=== PATIENT | female | born 1970 | race Caucasian/White ===

== ENCOUNTER 2023-01-04 08:29 | Inpatient (IN) ==
--- NOTE | 2023-01-04 08:35 | Emergency Department Note ---
ED Provider Note History of Present Illness Chief Complaint: Illness Stated Complaint: FEVERS, WEAKNESS, DEHYDRATED Time Seen by Provider: 01/04/23 08:34 This is a 52-year-old female with a history of bladder cancer currently receiving chemotherapy, due for bladder surgery in several months, who was referred to the emergency department by her hematology oncology provider. Patient states that she feels overall unwell. She endorses headaches located over her forehead over the past week or so, she had nausea and dry heaves yesterday and today. Endorses a fever of 103 yesterday, intermittent chills and sweats. She did take Tylenol yesterday for her fever which allowed it to this. Patient endorses an intermittent productive cough that has not really gotten better or worse recently. She had an oncology appointment today and her blood pressure was noted to be slightly low in the 90s systolic and given her fever was sent to the emergency department for a work-up. Last chemo treatment was nearly 2 weeks ago. She is on day 5 of Augmentin for possible sinus infection which was prescribed by Dr. Pickering (oncologist). Patient also states that influenza and COVID have both gone through her household recently. She is having a difficult time staying well-hydrated due to generally not feeling well and nausea. She denies any new shortness of breath, chest pain, abdominal pain, dysuria, or hematuria. No confusion Home Medications Medication Instructions Recorded Confirmed Type clonazepam 0.5 mg tablet 0.5 mg PO BID #180 tabs 07/18/19 01/04/23 History escitalopram oxalate 20 mg tablet 20 mg PO QAM 07/18/19 01/04/23 History methylphenidate HCl 54 mg 54 mg PO QAM PRN ADHD 07/18/19 01/04/23 History tablet,extended release 24 hr zolpidem 12.5 mg tablet,extended 12.5 mg PO HS 07/18/19 01/04/23 History release,multiphase pantoprazole 40 mg tablet,delayed 40 mg PO UD PRN gerd 10/12/22 01/04/23 History release lamotrigine 200 mg tablet 200 mg PO BID 11/13/22 01/04/23 History Allergies Allergy/AdvReac Type Severity Reaction Status Date / Time codeine Allergy Unknown Hallucinati Verified 11/16/22 08:50 ng Past Med/Surg History Medical History ADD (attention deficit disorder) Asthma "Allergy induced asthma" Bipolar disorder Bladder cancer Dx'ed 10/2022 GERD (gastroesophageal reflux disease) History of COVID-19 06/2021, test at [facility], not hosp; cough, fatigue>resolved. 06/2022, no testing-father tested positive, same symptoms>resolved in 3 days. Surgical History H/O transurethral resection of bladder tumor (TURBT) History of esophagogastroduodenoscopy (EGD) Hx of colonoscopy Hx of tonsillectomy Port-A-Cath in place (11/16/22) Left chest Access port placement. Use of fluoroscopy Dr. Sol Family History Mother Myocardial infarction Breast cancer Coronary heart disease Diabetes Heart disease Grandfather (Maternal) Myocardial infarction Coronary heart disease Stroke Diabetes Heart disease Grandmother (Maternal) Myocardial infarction Coronary heart disease Grandmother (Paternal) Cancer Family/Other Colonic polyp Denies family history of Ovarian cancer Prostate cancer Colorectal cancer Social History Smoking Status: Never smoker Second Hand Exposure: No; Hx Alcohol Use: Yes Hx Substance Use: No Preferred Language: Tam[place] Communication Ability: Effective Visual Impairment: No Limitations Hearing Ability: Normal [employer] Structure [employer] Required: No Beliefs That Will Affect Care: None marital status: Current Living Situation: Spouse current occupational status: employed current occupation: teacher How many Children do You have: 2 Feels Safe at Home: Yes Childhood Exposure to Second-Hand Smoke: No during the past year weight has: remained stable Assistive Devices: None Physical Exam Vital Signs Vital Signs - 24 hr 01/04/23 08:32 01/04/23 09:33 01/04/23 09:29 Temperature 97.2 F L Temperature Source Temporal Artery Scan Pulse Rate 86 73 Pulse Rate from SpO2 Sensor Respiratory Rate 18 16 Respiratory Effort / Characteristics Non-Labored Non-Labored Spontaneous Respiratory Depth Normal Normal Respiratory Pattern Regular Regular Blood Pressure 104/73 Blood Pressure [Left Arm] 102/49 L Blood Pressure Mean 83 Blood Pressure Mean [Left Arm] 66 Blood Pressure Position Sitting Blood Pressure Position [Left Arm] Lying Pulse Oximetry 96 95 Oxygen Delivery Method Room Air Room Air Sepsis Recent Fever Within 48 Hours No Sepsis New/Unexplained Change in Mental Status No Sepsis Action Taken by Nursing No Action Required 01/04/23 09:30 01/04/23 09:36 01/04/23 09:36 Temperature Temperature Source Pulse Rate 79 72 Pulse Rate from SpO2 Sensor 72 Respiratory Rate 16 17 Respiratory Effort / Characteristics Respiratory Depth Respiratory Pattern Blood Pressure 102/49 L Blood Pressure [Left Arm] Blood Pressure Mean 66 Blood Pressure Mean [Left Arm] Blood Pressure Position Blood Pressure Position [Left Arm] Pulse Oximetry 95 Oxygen Delivery Method Room Air Sepsis Recent Fever Within 48 Hours Sepsis New/Unexplained Change in Mental Status Sepsis Action Taken by Nursing 01/04/23 10:00 01/04/23 10:00 01/04/23 10:54 Temperature Temperature Source Pulse Rate 73 Pulse Rate from SpO2 Sensor 74 80 Respiratory Rate 13 Respiratory Effort / Characteristics Respiratory Depth Respiratory Pattern Blood Pressure 114/54 L Blood Pressure [Left Arm] Blood Pressure Mean 74 Blood Pressure Mean [Left Arm] Blood Pressure Position Blood Pressure Position [Left Arm] Pulse Oximetry 92 94 Oxygen Delivery Method Room Air Room Air Sepsis Recent Fever Within 48 Hours Sepsis New/Unexplained Change in Mental Status Sepsis Action Taken by Nursing 01/04/23 11:00 Temperature Temperature Source Pulse Rate 72 Pulse Rate from SpO2 Sensor 74 Respiratory Rate 15 Respiratory Effort / Characteristics Respiratory Depth Respiratory Pattern Blood Pressure Blood Pressure [Left Arm] Blood Pressure Mean Blood Pressure Mean [Left Arm] Blood Pressure Position Blood Pressure Position [Left Arm] Pulse Oximetry 92 Oxygen Delivery Method Room Air Sepsis Recent Fever Within 48 Hours Sepsis New/Unexplained Change in Mental Status Sepsis Action Taken by Nursing CONSTITUTIONAL: Well developed, well nourished, mildly ill-appearing, nontoxic HEAD: Normocephalic, atraumatic. EYES: PERRL, conjunctivae normal, extraocular muscles intact. ENMT: External ears normal. Nose with normal external appearance, mild congestion is noted. Oral mucous membranes slightly dry, otherwise normal oropharynx. NECK: Full active range of motion. No rigidity LYMPHATIC: No cervical adenopathy RESPIRATORY: Breathing unlabored and symmetric. Lungs clear to auscultation bilaterally. No wheeze, rales, or rhonchi. CARDIOVASCULAR: Regular rate and rhythm. No murmurs, rubs, or gallops. No swelling or tenderness in bilateral lower extremities ABDOMEN: Normal bowel sounds. Soft, nontender, no peritonitis. No masses. No CVA tenderness bilaterally. MUSCULOSKELETAL: Moves all extremities at all joints without pain or difficulty. No cyanosis or edema. Back with full range of motion. SKIN: [place], warm, dry. NEUROLOGIC: Awake, alert, oriented. Gaze is conjugate. Face symmetric, speech normal. Moves head and all four extremities spontaneously. Sensation and strength grossly intact. PSYCHIATRIC: Appropriate. Normal affect Course Consultations Consultation #1: Spoke with Dr. Pickering (oncology) who referred the patient to the emergency department. She is requesting a septic work-up with blood work, blood cultures, chest x-ray, urinalysis. We discussed her being on Augmentin over the past 5 days which she does not think should be extended as the patient developed a fever of 103 yesterday. Administered Medications Acetaminophen (Acetaminophen 325 Mg Tab) 650 mg PO Q4H PRN PRN Reason: Pain or Fever Stop: 02/03/23 14:39 Last Admin: 01/04/23 15:03 Dose: 650 mg Documented By: ROMEL Miscellaneous (Concerta~Order Awaiting Action) 1 each N/A QS FREDIS Stop: 02/03/23 15:59 Last Admin: 01/04/23 17:02 Dose: Not Given Documented By: ROMEL Discontinued Medications Acetaminophen (Acetaminophen 325 Mg Tab) 650 mg PO NOW STA Stop: 01/04/23 09:57 Last Admin: 01/04/23 10:01 Dose: 650 mg Documented By: JORDANA Famotidine (Famotidine 20mg/5ml Iv Push) 20 mg IV ONE STA Stop: 01/04/23 12:08 Last Admin: 01/04/23 12:29 Dose: 20 mg Documented By: JORDANA Sodium Chloride (Nss 1000ml) 1,000 mls @ 999 mls/hr IV .Q1H1M ONE Stop: 01/04/23 09:52 Last Infusion: 01/04/23 10:36 Dose: 0 mls/hr Documented By: Admin: 01/04/23 09:36 Dose: 999 mls/hr Documented By: JORDANA Sodium Chloride (Nss 1000ml) 1,000 mls @ 999 mls/hr IV .Q1H1M ONE Stop: 01/04/23 11:04 Last Infusion: 01/04/23 11:45 Dose: 0 mls/hr Documented By: Admin: 01/04/23 10:44 Dose: 999 mls/hr Documented By: JORDANA Cefepime HCl (Maxipime) 2,000 mg in 20 mls @ 5 mls/min IV NOW STA; Protocol Stop: 01/04/23 10:10 Last Admin: 01/04/23 10:45 Dose: 5 mls/min Documented By: JORDANA Vancomycin HCl 2,250 mg/ (Sodium Chloride) 545 mls @ 200 mls/hr IV NOW ONE Stop: 01/04/23 12:50 Last Admin: 01/04/23 10:50 Dose: 200 mls/hr Documented By: JORDANA Piperacillin Sod/Tazobactam (Sod 4.5 gm/ Dextrose) 120 mls @ 240 mls/hr IV NOW ONE; Protocol Stop: 01/04/23 15:29 Last Infusion: 01/04/23 17:14 Dose: 0 mls/hr Documented By: Admin: 01/04/23 15:05 Dose: 240 mls/hr Documented By: ROMEL Ondansetron HCl (Ondansetron Inj 2 Mg/Ml 2 Ml Vial) 4 mg IV NOW STA Stop: 01/04/23 09:10 Last Admin: 01/04/23 09:36 Dose: 4 mg Documented By: JORDANA Medical Decision Making Differential Diagnosis Sepsis, viral upper respiratory infection, sinusitis, bacteremia, pneumonia, UTI, neutropenic fever, meningitis, among other pathology Laboratory Data 01/04/23 09:39 01/04/23 09:39 Lab Results 01/04/23 01/04/23 01/04/23 Range/Units 09:39 09:39 09:39 WBC 2.03 L (4.8-10.8) K/ul RBC 3.52 L (4.20-5.40) M/uL Hgb 10.0 L (12.0-16.0) g/dl Hct 29.6 L (37.0-47.0) % MCV 84.1 (80.0-100.0) fL MCH 28.4 (25.0-34.0) pg MCHC 33.8 (32.0-36.0) g/dL RDW Std Deviation 40.9 (36.4-46.3) fL RDW Coeff of Jane 14.8 H (11.5-14.5) % Plt Count 114 L (130-400) K/uL MPV 9.6 (9.4-12.4) fL Immature Gran % (Auto) 3.9 % Neut % (Auto) 51.3 % Lymph % (Auto) 24.1 % Morrison % (Auto) 19.2 % Eos % (Auto) 1.0 % Baso % (Auto) 0.5 % Neut # (Auto) 1.04 L (1.40-6.50) K/uL Lymph # (Auto) 0.49 L (1.2-3.4) K/uL Morrison # (Auto) 0.39 (0.11-0.59) K/uL Eos # (Auto) 0.02 (0-0.50) K/uL Baso # (Auto) 0.01 (0-0.2) K/uL Immature Gran # (Auto) 0.08 (0.01-0.20) K/uL Sodium 136 (136-145) mmol/L Potassium 4.0 (3.5-5.1) mmol/L Chloride 99 (98-107) mmol/L Carbon Dioxide 29 (21-32) mmol/L Anion Gap 8 (3-11) BUN 14 (6-23) mg/dl Creatinine 0.80 (0.6-1.2) mg/dl Est Cr Clr Drug Dosing 108.7 ml/min Est GFR ( Amer) 98.9 ml/min Est GFR (Non-Af Amer) 85.4 ml/min BUN/Creatinine Ratio 17.5 (10-20) Glucose 120 H (70-99(Fasting)) mg/dl Lactate 3.3 H* (0.4-2.0) mmol/L Calcium 9.3 (8.5-10.1) mg/dl Total Bilirubin 0.3 (0.2-1.0) mg/dl AST 14 (13-39) U/L ALT 13 (7-52) U/L Alkaline Phosphatase 73 (34-104) U/L Total Creatine Kinase 29 (26-192) U/L Total Protein 6.4 (6.0-8.3) gm/dl Albumin 4.0 (3.4-5.0) gm/dl Globulin 2.4 L (2.5-4.0) gm/dl Albumin/Globulin Ratio 1.7 (0.9-2) Procalcitonin (0-0.5) ng/ml Adenovirus (PCR) (NotDetected) B. pertussis DNA (PCR) (NotDetected) B.parapertussis DNA PCR (NotDetected) C. pneumoniae DNA (PCR) (NotDetected) Coronavirus OC43 (PCR) (NotDetected) Coronavirus HKU1 (PCR) (NotDetected) Coronavirus 229E (PCR) (NotDetected) SARS-CoV-2 (PCR) (NotDetected) Coronavirus NL63 (PCR) (NotDetected) Human Metapneumovir PCR (NotDetected) Influenza Type A (PCR) (NotDetected) Influenza Type B (PCR) (NotDetected) M. pneumoniae (PCR) (NotDetected) Parainfluenza 1 (PCR) (NotDetected) Parainfluenza 2 (PCR) (NotDetected) Parainfluenza 3 (PCR) (NotDetected) Parainfluenza 4 (PCR) (NotDetected) RSV (PCR) (NotDetected) Entero/Rhino (PCR) (NotDetected) 01/04/23 01/04/23 01/04/23 Range/Units 09:39 09:39 09:43 WBC (4.8-10.8) K/ul RBC (4.20-5.40) M/uL Hgb (12.0-16.0) g/dl Hct (37.0-47.0) % MCV (80.0-100.0) fL MCH (25.0-34.0) pg MCHC (32.0-36.0) g/dL RDW Std Deviation (36.4-46.3) fL RDW Coeff of Jane (11.5-14.5) % Plt Count (130-400) K/uL MPV (9.4-12.4) fL Immature Gran % (Auto) % Neut % (Auto) % Lymph % (Auto) % Morrison % (Auto) % Eos % (Auto) % Baso % (Auto) % Neut # (Auto) (1.40-6.50) K/uL Lymph # (Auto) (1.2-3.4) K/uL Morrison # (Auto) (0.11-0.59) K/uL Eos # (Auto) (0-0.50) K/uL Baso # (Auto) (0-0.2) K/uL Immature Gran # (Auto) (0.01-0.20) K/uL Sodium (136-145) mmol/L Potassium (3.5-5.1) mmol/L Chloride (98-107) mmol/L Carbon Dioxide (21-32) mmol/L Anion Gap (3-11) BUN (6-23) mg/dl Creatinine (0.6-1.2) mg/dl Est Cr Clr Drug Dosing ml/min Est GFR ( Amer) ml/min Est GFR (Non-Af Amer) ml/min BUN/Creatinine Ratio (10-20) Glucose (70-99(Fasting)) mg/dl Lactate (0.4-2.0) mmol/L Calcium (8.5-10.1) mg/dl Total Bilirubin (0.2-1.0) mg/dl AST (13-39) U/L ALT (7-52) U/L Alkaline Phosphatase (34-104) U/L Total Creatine Kinase Cancelled (26-192) U/L Total Protein (6.0-8.3) gm/dl Albumin (3.4-5.0) gm/dl Globulin (2.5-4.0) gm/dl Albumin/Globulin Ratio (0.9-2) Procalcitonin 0.19 (0-0.5) ng/ml Adenovirus (PCR) Not Detected (NotDetected) B. pertussis DNA (PCR) Not Detected (NotDetected) B.parapertussis DNA PCR Not Detected (NotDetected) C. pneumoniae DNA (PCR) Not Detected (NotDetected) Coronavirus OC43 (PCR) Not Detected (NotDetected) Coronavirus HKU1 (PCR) Not Detected (NotDetected) Coronavirus 229E (PCR) Not Detected (NotDetected) SARS-CoV-2 (PCR) Not Detected (NotDetected) Coronavirus NL63 (PCR) Not Detected (NotDetected) Human Metapneumovir PCR Not Detected (NotDetected) Influenza Type A (PCR) Not Detected (NotDetected) Influenza Type B (PCR) Not Detected (NotDetected) M. pneumoniae (PCR) Not Detected (NotDetected) Parainfluenza 1 (PCR) Not Detected (NotDetected) Parainfluenza 2 (PCR) Not Detected (NotDetected) Parainfluenza 3 (PCR) Not Detected (NotDetected) Parainfluenza 4 (PCR) Not Detected (NotDetected) RSV (PCR) Not Detected (NotDetected) Entero/Rhino (PCR) Not Detected (NotDetected) Imaging Data Attestation: I personally reviewed and interpreted this imaging study as follows: (I agree with the radiologist's interpretation) Radiologist's Impression: Chest X-Ray 01/04/23 09:04 XR chest 2V PA/lateral CLINICAL HISTORY: cough, fever, immunocompromised TECHNIQUE: 2 views of the chest were obtained. Comparison: Comparison is made to chest radiograph 11/16/2022 FINDINGS: A port catheter is seen. The cardiomediastinal silhouette is normal. The lungs are clear. No evidence of pleural effusion or pneumothorax. Degenerative changes are seen in the spine. IMPRESSION: No acute chest disease. ACT 112: Negative or not required by law. Electronically signed by: Jacques Palacio M.D. 01/04/2023 10:40 AM MDM Narrative 52-year-old female bladder cancer patient on chemotherapy presents with a fever of 103 yesterday, dry heaves and nausea yesterday and today, generally feeling unwell with a productive cough intermittently and persistent frontal headache. On day 5 of Augmentin for questionable sinus infection. She was sent to the emergency department by oncology for slightly low blood pressure and sepsis work-up. Here in the ED she is 104/73, not tachycardic, afebrile. Slightly ill-appearing but nontoxic. Mucous membranes slightly dry. Blood cultures were obtained. Initial 1 L of IV fluids was initiated. Labs showed leukopenia at 2.03 compared to 4.33 from 6 days ago. Her lactate is elevated at 3.3. Given her fever of 103 yesterday, she meets sepsis criteria. An additional 1 L of IV fluids was administered based on ideal body weight to meet sepsis parameters. Case was discussed with ED attending Dr. Gaines and we will administer vancomycin and cefepime. Hemoglobin 10.0, slightly decreased from prior. Upper respiratory panel is negative. Urine no evidence of infection. Her chest x-ray does not show any obvious abnormalities. Patient rested comfortably. She will be admitted for ongoing management after discussing the case with the [facility] hospitalist group. Impression Neutropenic fever Discharge Plan Visit Data Chief Complaint: Illness Stated Complaint: FEVERS, WEAKNESS, DEHYDRATED ED Provider: Gustabo Gaines ED Midlevel Provider: Rohith Pacheco Discharge Problem: Neutropenic fever Patient Disposition: Admitted As Inpatient Discharge Instructions Interventions: ED Discharge Assessment Last Done: 01/04/23 13:41
[2023-01-04] MEDS ORDERED: SODIUM CHLORIDE 0.9% 1000ML 1,000 ML IV ONE ×2 (08:52→10:04)
[2023-01-04] MEDS ORDERED: ONDANSETRON INJ 2 MG/ML 2 ML VIAL IV STA (09:09)
[2023-01-04] MEDS ORDERED: ACETAMINOPHEN 325 MG TAB PO STA (09:56)
[2023-01-04 10:05] LABS: Basophils # (auto) 0.01 K/uL (0-0.2); Basophils % (auto) 0.5 %; Eosinophils # (auto) 0.02 K/uL (0-0.50); Hematocrit (blood only) 29.6 % (37.0-47.0); Immature Granulocytes # (auto) 0.08 K/uL (0.01-0.20); Immature Granulocytes % (auto) 3.9 %; Lymphocytes # (auto) 0.49 K/uL (1.2-3.4); Lymphocytes % (auto) 24.1 %; Mean Corpuscular Hemoglobin 28.4 pg (25.0-34.0); Mean Corpuscular Hgb Conc 33.8 g/dL (32.0-36.0); Mean Corpuscular Volume 84.1 fL (80.0-100.0); Mean Platelet Volume 9.6 fL (9.4-12.4); Monocytes # (auto) 0.39 K/uL (0.11-0.59); Monocytes % (auto) 19.2 %; Neutrophils # (auto) 1.04 K/uL (1.40-6.50); Neutrophils % (auto) 51.3 %; Platelet Count 114 K/uL (130-400); RDW Coefficient of Variation 14.8 % (11.5-14.5); RDW Standard Deviation 40.9 fL (36.4-46.3); Red Blood Count 3.52 M/uL (4.20-5.40); White Blood Count 2.03 K/ul (4.8-10.8)
[2023-01-04 10:07] LABS: Bilirubin,Total 0.3 mg/dl (0.2-1.0); Calcium 9.3 mg/dl (8.5-10.1)
[2023-01-04] MEDS ORDERED: VANCOMYCIN CONSULT ACTIVE PRN (10:07)
[2023-01-04] MEDS ORDERED: VANCOMYCIN HCL 2,250 MG in SODIUM CHLORIDE 0.9% 500 ML IV ONE (10:07)
[2023-01-04] MEDS ORDERED: CEFEPIME 2,000 MG/20 ML VIAL IV STA (10:07)
[2023-01-04 10:13] LABS: Albumin Globulin Ratio 1.7 (0.9-2); BUN Creatinine Ratio 17.5 (10-20); Creatinine Clr Calc Pharmacy 108.7 ml/min; Est GFR (African American) 98.9 ml/min; Est GFR (Non-African American) 85.4 ml/min; Globulin 2.4 gm/dl (2.5-4.0); Total Protein 6.4 gm/dl (6.0-8.3)
--- NOTE | 2023-01-04 10:42 | XRay Report ---
XR chest 2V PA/lateral CLINICAL HISTORY: cough, fever, immunocompromised TECHNIQUE: 2 views of the chest were obtained. Comparison: Comparison is made to chest radiograph 11/16/2022 FINDINGS: A port catheter is seen. The cardiomediastinal silhouette is normal. The lungs are clear. No evidence of pleural effusion or pneumothorax. Degenerative changes are seen in the spine. IMPRESSION: No acute chest disease. ACT 112: Negative or not required by law. Electronically signed by: Jacques Palacio M.D. 01/04/2023 10:40 AM
[2023-01-04 10:59] LABS: Adenovirus PCR Not Detected (NotDetected); Bordetella parapertussis PCR Not Detected (NotDetected); Bordetella pertussis PCR Not Detected (NotDetected); Chlamydia pneumoniae PCR Not Detected (NotDetected); Coronavirus 229E PCR Not Detected (NotDetected); Coronavirus CoV-2 (COVID19)PCR Not Detected (NotDetected); Coronavirus HKU1 PCR Not Detected (NotDetected); Coronavirus NL63 PCR Not Detected (NotDetected); Coronavirus OC43PCR Not Detected (NotDetected); Human Metapneumovirus PCR Not Detected (NotDetected); Influenza A PCR Not Detected (NotDetected); Influenza B PCR Not Detected (NotDetected); Mycoplasma pneumoniae PCR Not Detected (NotDetected); Parainfluenza Virus 1 PCR Not Detected (NotDetected); Parainfluenza Virus 2 PCR Not Detected (NotDetected); Parainfluenza Virus 3 PCR Not Detected (NotDetected); Parainfluenza Virus 4 PCR Not Detected (NotDetected); Respiratory Syncytial VirusPCR Not Detected (NotDetected); Rhinovirus/Enterovirus PCR Not Detected (NotDetected)
--- NOTE | 2023-01-04 11:16 | History & Physical Report ---
Date of Service January 04, 2023 Assessment & Plan (1) Neutropenic fever: Plan: No definitive source on admission but Mediport present Neutropenic isolation precautions Biofire and CXR negative UA pending but no urinary symptoms Mild epigastric pain but will defer further imaging on admission as low suspicion as source of infection - treat as gastritis as below Blood cultures Empiric antibiotics with Vancomycin and Zosyn (2) GERD (gastroesophageal reflux disease): Plan: Gastritis suspected on exam Start IV famotidine 20mg, switch oral pantoprazole to IV (3) Bipolar disorder: Plan: Continue lamotrigine, Lexapro, Clonazepam and Zolpidem (4) Urothelial cancer: Plan VTE Prophylaxis - Lovenox 40mg SQ BID Diet - regular Disposition - admit to PCU Admission and Anticipated Discharge Date Admission Date: Jan 04, 2023 History of Present Illness Chief Complaint: Generalized weakness Primary Care Provider: Dewayne Bryant MD Ashley Mcgowan is a 52-year-old female who presents to the with generalized weakness, nausea. She is currently receiving chemotherapy for bladder cancer with last infusion 2 weeks ago. Generally not feeling well for the last 10 days after chemotherapy 2 weeks ago. She usually gets sick a few days after chemotherapy but then improves but this time she has progressively been getting worse. Due to hypotension in her oncologist office she was advised to come to the ER (). Yesterday she had a fever of 103 degrees Fahrenheit which improved with acetaminophen, ice and a bath. Family in her house had flu-like symptoms last week and her sinuses felt full therefore she was prescribed a course of antibiotics with Augmentin for sinusitis by her oncologist this last week. She was on this for 7 days and is now finished. Today is the best the sinus pain have felt. One episode of loose stool yesterday but no ongoing diarrhea. She had dry heaves yesterday and this morning. She has chronic chest tightness (feeling of claustrophobia) since starting chemotherapy which has not recently changed. She denies any melena or bright red blood in stool. Initially she denies any abdominal pain but on discussing her reflux and pantoprazole use she reports new onset epigastric pain for the last 14 days and taking pantoprazole regularly for the last 7 days which was midly helping but still having some epigastric discomfort. Allergies Allergy/AdvReac Type Severity Reaction Status Date / Time codeine Allergy Unknown Hallucinati Verified 11/16/22 08:50 ng Home Medications Medication Instructions Recorded Confirmed Type clonazepam 0.5 mg tablet 0.5 mg PO BID #180 tabs 07/18/19 01/04/23 History escitalopram oxalate 20 mg tablet 20 mg PO QAM 07/18/19 01/04/23 History methylphenidate HCl 54 mg 54 mg PO QAM PRN ADHD 07/18/19 01/04/23 History tablet,extended release 24 hr zolpidem 12.5 mg tablet,extended 12.5 mg PO HS 07/18/19 01/04/23 History release,multiphase pantoprazole 40 mg tablet,delayed 40 mg PO UD PRN gerd 10/12/22 01/04/23 History release lamotrigine 200 mg tablet 200 mg PO BID 11/13/22 01/04/23 History Past Med/Surg History Medical History ADD (attention deficit disorder) Asthma "Allergy induced asthma" Bipolar disorder Bladder cancer Dx'ed 10/2022 GERD (gastroesophageal reflux disease) History of COVID-19 06/2021, test at [place], not hosp; cough, fatigue>resolved. 06/2022, no testing-father tested positive, same symptoms>resolved in 3 days. Surgical History H/O transurethral resection of bladder tumor (TURBT) History of esophagogastroduodenoscopy (EGD) Hx of colonoscopy Hx of tonsillectomy Port-A-Cath in place (11/16/22) Left chest Access port placement. Use of fluoroscopy Dr. Sol Family History Mother Myocardial infarction Breast cancer Coronary heart disease Diabetes Heart disease Grandfather (Maternal) Myocardial infarction Coronary heart disease Stroke Diabetes Heart disease Grandmother (Maternal) Myocardial infarction Coronary heart disease Grandmother (Paternal) Cancer Family/Other Colonic polyp Denies family history of Ovarian cancer Prostate cancer Colorectal cancer Social History Smoking Status: Never smoker Second Hand Exposure: No; Hx Alcohol Use: Yes Hx Substance Use: No Preferred Language: Greek Communication Ability: Effective Visual Impairment: No Limitations Hearing Ability: Normal Material Handling Technician Required: No Beliefs That Will Affect Care: None marital status: Current Living Situation: Spouse current occupational status: employed current occupation: teacher How many Children do You have: 2 Feels Safe at Home: Yes Childhood Exposure to Second-Hand Smoke: No during the past year weight has: remained stable Assistive Devices: None Review of Systems Review of Systems: All systems reviewed & are unremarkable except as noted in HPI & below Physical Exam Constitutional: WD/WN, vitals as above Eyes: PERRL, conjunctivae normal, anicteric sclerae ENMT: external ear and nose normal, oropharynx normal Mouth: oral mucous membranes not dry Respiratory: normal respiratory effort, lungs clear to auscultation Gastrointestinal (Abdomen): normal bowel sounds, soft, nontender, no hepatosplenomegaly Musculoskeletal: no cyanosis or clubbing, extremities motor strength 5/5 Skin: no rashes, warm and dry No erythema or swelling around mediport Neurologic: moves all extremities and awake; no focal motor deficits and not confused Psychiatric: A+Ox3, euthymic affect Genitourinary: no CVA tenderness Results & Data Results & Data ([facility]) Vital Signs (Past 12 Hours) Vital Signs Temp Pulse Resp BP BP Pulse Ox O2 Del Method 01/04/23 09:36 72 17 95 Room Air 01/04/23 09:36 102/49 L 01/04/23 09:30 79 16 01/04/23 09:29 16 102/49 L 95 Room Air 01/04/23 09:33 73 01/04/23 08:32 36.2 C L 86 18 104/73 96 Room Air Laboratory Results Abnormal lab results 01/04/23 01/04/23 01/04/23 Range/Units 09:39 09:39 09:39 WBC 2.03 L (4.8-10.8) K/ul RBC 3.52 L (4.20-5.40) M/uL Hgb 10.0 L (12.0-16.0) g/dl Hct 29.6 L (37.0-47.0) % RDW Coeff of Jane 14.8 H (11.5-14.5) % Plt Count 114 L (130-400) K/uL Neut # (Auto) 1.04 L (1.40-6.50) K/uL Lymph # (Auto) 0.49 L (1.2-3.4) K/uL Glucose 120 H (70-99(Fasting)) mg/dl Lactate 3.3 H* (0.4-2.0) mmol/L Globulin 2.4 L (2.5-4.0) gm/dl Diagnostic Findings XR chest 2V PA/lateral CLINICAL HISTORY: cough, fever, immunocompromised TECHNIQUE: 2 views of the chest were obtained. Comparison: Comparison is made to chest radiograph 11/16/2022 FINDINGS: A port catheter is seen. The cardiomediastinal silhouette is normal. The lungs are clear. No evidence of pleural effusion or pneumothorax. Degenerative changes are seen in the spine. IMPRESSION: No acute chest disease. Medications Administered ER medications given: Normal saline 1 L bolus x2 Cefepime 2 g IV Vancomycin 2250 mg IV Acetaminophen 650 mg p.o. ECG Rate (beats per minute): 64 Rhythm: normal sinus Findings: no acute ischemic change Comparison ECG Date: from (07 Oct 2022) Change: the following changes noted (T wave amplitude decreased in inferior leads) Code Status & VTE Plan Code Status Full VTE Prophylaxis Plan VTE Prophylaxis will be ordered: Yes PG Care Time/CCT Total # of Minutes Spent Total Time Spent with Patient: Total time spent is greater than 50% in coordination of care (as documented) at patient's floor/unit and/or counseling patient: Coding Level of Care Code 96784 INT INP/OBS CARE 3/75MIN Diagnoses Neutropenic fever D70.9; R50.81 GERD (gastroesophageal reflux disease) K21.9 Esophagitis presence: without esophagitis Bipolar disorder F31.9 Current bipolar episode type: depressed Current episode severity: unspecified Urothelial cancer C68.9 (2) GERD (gastroesophageal reflux disease) Esophagitis presence: without esophagitis Qualified Code(s): K21.9 - Gastro- esophageal reflux disease without esophagitis (3) Bipolar disorder Current bipolar episode type: depressed Current episode severity: unspecified
[2023-01-04] MEDS ORDERED: FAMOTIDINE 20 MG in SYRINGE 3 ML IV STA (12:03)
[2023-01-04] MEDS ORDERED: FAMOTIDINE 20MG/5ML IV PUSH IV STA (12:07)
[2023-01-04 12:13] LABS: Appearance Urine Clear (Clear); Bacteria Urine Automated Negative (Negative); Bilirubin Urine Negative (Negative); Blood Urine Negative (Negative); Cast Urine Automated 0 /lpf (0-5); Color Urine Yellow; Epithelial Cell Urine Auto 20-30 /lpf (0-5); Glucose Urine UA Negative (Negative); Ketones Urine Negative (Negative); Leukocyte Esterase Urine Trace (Negative); Nitrite Urine Negative (Negative); Protein Urine Negative (Negative); RBC Urine Automated 0-4 /hpf (0-4); Specific Gravity Urine 1.008 (1.000-1.030); Urobilinogen Urine Negative (Negative); pH Urine 6.5 (4.5-7.5)
--- NOTE | 2023-01-04 12:52 | Electrocardiogram Report ---
Test Reason : Blood Pressure : / mmHG Vent. Rate : 064 BPM Atrial Rate : 064 BPM P-R Int : 166 ms QRS Dur : 092 ms QT Int : 412 ms P-R-T Axes : 042 026 039 degrees QTc Int : 425 ms Normal sinus rhythm Normal ECG When compared with ECG of 07-OCT-2022 11:30, T wave amplitude has decreased in Inferior leads Confirmed by Dewayne Rojo ([id number]) on 01/04/2023 12:52:30 PM Referred By: REFERRED SELF Confirmed By:Dewayne Rojo
[2023-01-04] MEDS ORDERED: PIPERACILLIN/TAZOBACTAM 4.5 GM (over 30 mins) IV ONE (15:00)
--- NOTE | 2023-01-04 15:02 | Pharmacy Report ---
Pharmacy PK ABX Note - Date of Service January 04, 2023 - Assessment and Plan Assessment 52 year old F receiving vancomycin and zosyn empirically in the setting of fever and neutropenia. Currently receiving chemotherapy for bladder cancer. Blood cultures pending. Renal function stable. Day #1 of antimicrobial therapy. Plan Vancomycin * Loading dose: 2250 mg IV x 1 * Maintenance dose: 1250 mg IV every 12 hours * Regimen is predicted to achieve target AUC/ANDREW of 400-600 mg/L.hr * Will obtain a level around steady state, or sooner if clinically indicated. Pharmacy will continue to follow and will adjust dose/frequency as necessary. Thank you. Pharmacy has transitioned to AUC monitoring for vancomycin. AUC/ANDREW is the preferred PK/PD target and is associated with decreased risk of nephrotoxicity compared to traditional trough targets.
[2023-01-04] MEDS: ACETAMINOPHEN 325 MG TAB PO PRN ×2 (15:03→20:27)
[2023-01-04] MEDS: CONCERTA~ORDER AWAITING ACTION SCH ×2 (17:02→23:25)
[2023-01-04] MEDS: VANCOMYCIN HCL 1,250 MG in SODIUM CHLORIDE 0.9% 250 ML IV SCH (18:38)
[2023-01-04] MEDS: FAMOTIDINE 20 MG in SYRINGE 3 ML IV SCH (20:01)
[2023-01-04] MEDS: lamoTRIgine 100 MG TAB PO SCH (20:03)
[2023-01-04] MEDS: PANTOprazole 40 MG in SYRINGE 0 ML IV SCH (20:05)
[2023-01-04] MEDS: ZOLPIDEM TARTRATE 10 MG TAB PO SCH (20:10)
[2023-01-04] MEDS: PIPERACILLIN/TAZOBACTAM 4.5 GM in DEXTROSE 5% 100 ML IV SCH (20:11)
[2023-01-04] MEDS: clonazePAM 0.5 MG TAB PO SCH (20:11)
[2023-01-05] MEDS: ACETAMINOPHEN 325 MG TAB PO PRN ×4 (03:09→20:56)
[2023-01-05] MEDS: PIPERACILLIN/TAZOBACTAM 4.5 GM in DEXTROSE 5% 100 ML IV SCH ×3 (03:15→19:46)
[2023-01-05] MEDS: ONDANSETRON INJ 2 MG/ML 2 ML VIAL IV PRN ×3 (03:28→15:01)
[2023-01-05 06:01] LABS: Hematocrit (blood only) 27.8 % (37.0-47.0); Hemoglobin 9.4 g/dl (12.0-16.0); Mean Corpuscular Hemoglobin 28.3 pg (25.0-34.0); Mean Corpuscular Hgb Conc 33.8 g/dL (32.0-36.0); Mean Corpuscular Volume 83.7 fL (80.0-100.0); Mean Platelet Volume 9.6 fL (9.4-12.4); Platelet Count 126 K/uL (130-400); RDW Coefficient of Variation 14.9 % (11.5-14.5); RDW Standard Deviation 42.1 fL (36.4-46.3); Red Blood Count 3.32 M/uL (4.20-5.40)
[2023-01-05 06:17] LABS: BUN Creatinine Ratio 12.3 (10-20); Calcium 8.6 mg/dl (8.5-10.1); Creatinine Clr Calc Pharmacy 109.9 ml/min; Est GFR (African American) 97.5 ml/min; Est GFR (Non-African American) 84.1 ml/min; Potassium 3.7 mmol/L (3.5-5.1)
[2023-01-05] MEDS: VANCOMYCIN HCL 1,250 MG in SODIUM CHLORIDE 0.9% 250 ML IV SCH ×2 (06:48→18:07)
[2023-01-05] MEDS: PANTOprazole 40 MG in SYRINGE 0 ML IV SCH ×2 (07:34→20:47)
[2023-01-05] MEDS: FAMOTIDINE 20 MG in SYRINGE 3 ML IV SCH ×2 (07:35→20:46)
[2023-01-05] MEDS: CONCERTA~ORDER AWAITING ACTION SCH ×3 (09:05→22:29)
[2023-01-05] MEDS: ESCITALOPRAM OXALATE 20 MG TAB PO SCH (09:12)
[2023-01-05] MEDS: lamoTRIgine 100 MG TAB PO SCH ×2 (09:12→20:48)
[2023-01-05] MEDS: clonazePAM 0.5 MG TAB PO SCH ×2 (09:12→20:51)
--- NOTE | 2023-01-05 11:48 | Hospitalist Progress Note ---
Date of Service January 05, 2023 Assessment & Plan (1) Neutropenic fever: Plan: 2nd to recent URI/acute sinusitis? BioFire resp panel fully negative. CXR negative. CTA chest obtained today due to c/o dyspnea - fully negative for pneumonia and PE. U/a wnl. Blood cx's thus far negative. Cont Neutropenic isolation precautions. Cont Empiric antibiotics with Vancomycin and Zosyn. If above w/u remains negative would Rx for acute bacterial sinusitis at d/c. Pharmacy records show she had gotten 7 day supply of augmentin, but pt reports only taking 5 days? (2) Antineoplastic chemotherapy induced pancytopenia: Plan: s/p recent chemotherapy for bladder/urothelial cancer. All cell lines low but acceptable. ANC still >1000. Thus neutropenia is mild at this time. Repeat CBC am. (3) Sepsis: Plan: Possible. Follow blood cx's. Cont empiric broad-spectrum IV abx. (4) Dyspnea: Plan: Due to this complaint I ordered CTA chest - this was fully neg for pneumonia/metastatic disease/PEs/other pathology. 2nd to anxiety? (5) Sinusitis, acute: Plan: as above in #1. cont IV abx until blood cx's neg x 48 hours. then either finish course of augmentin OR change to cephalosporin. (6) Diarrhea: Plan: given recent abx usage check a c diff. (7) GERD (gastroesophageal reflux disease): Plan: +/-gastritis add carafate QID cont PPI + H2 lucy EGD previously completed in 05/2018 at [facility] - Dr Efra Victor By report -- gastritis seen. Path c/w mild chronic gastritis. Normal duodenal bx. H pylori negative. At d/c consider increase in PPI to twice daily for a few weeks, then back to once daily after that. Also consider 7-10 day run of carafate. (8) Bipolar disorder: Plan: Continue lamotrigine, Lexapro, Clonazepam and Zolpidem (9) Urothelial cancer: Plan: Under the care of [facility] locally, Dr Pickering at [facility], and [facility] for future bladder surgery (planned for March). Pt is hoping to stop chemo soon and proceed directly to surgery. Defer that decision to Dr Pickering. (10) DVT prophylaxis: Plan: add lovenox 40mg once daily first dose now Plan updated pt's by phone this evening discussed pt's care with Dr Pickering from heme/onc Admission and Anticipated Discharge Date Admission Date: January 04, 2023 Subjective tele stable overnight patient feeling poorly overall, but with that said she states "can I go home?" not sleeping well here - knows she will sleep better at home she & her along with 2 adult children all had URIs in the last 10 days her symptoms have lasted longest (probably the full 10 days) maxillary sinus pain and tooth pain, congestion, mild cough appetite fair at best did take augmentin prescribed by Dr Pickering's office for about 5 days prior to this admission feels run down also c/o feeling short of breath both at rest and with exertion states "it is a claustrophobia feeling" in my chest has had the dyspnea since starting chemo at one point started to cry, stating she couldn't continue chemo and just wants to do her surgery on the bladder down in [place] at [facility] asks if I can speak to Dr Pickering about this Review of Systems Review of Systems: gen - no further fever/chills today; appetite fair cv - no chest pain or orthopnea pulm - mild cough and dyspnea (latter chronic) GI - no vomiting, having mucous-filled stools, no blood ; also with reflux type symptoms and dyspepsia/stomach pain high abdomen - relieved with pepcid Physical Exam Physical Exam: gen - obese, NAD, tearful, lying flat comfortably in bed mouth - no thrush, no mucositis, MMM neck - no JVD heart - RRR, s1 s2, no murmur lungs - left basilar faint dry rales, otherwise CTA b/l abd - soft, mildly tender high epigastric region, BS+, no HSM ext - no edema, pulses 2+ b/l chest - port L upper chest clean, no erythema skin - no rash Results & Data Results & Data ([facility]) Vital Signs (Past 12 Hours) Vital Signs Temp Pulse Pulse Resp BP Pulse Ox O2 Del Method 01/05/23 11:09 36.8 C 76 16 119/82 94 Room Air 01/05/23 07:40 Room Air 01/05/23 05:58 66 01/05/23 07:25 37.4 C 76 18 101/65 97 Room Air 01/05/23 06:02 84 18 126/44 L 92 Room Air 01/05/23 05:11 37.6 C H 01/05/23 03:57 77 19 113/58 L 91 Room Air Laboratory Results Laboratory Results - last 24 hr 01/04/23 01/04/23 01/04/23 09:39 09:39 11:33 WBC RBC Hgb Hct MCV MCH MCHC RDW Std Deviation RDW Coeff of Jane Plt Count MPV Sodium Potassium Chloride Carbon Dioxide Anion Gap BUN Creatinine Est Cr Clr Drug Dosing Est GFR ( Amer) Est GFR (Non-Af Amer) BUN/Creatinine Ratio Glucose POC Glucose Lactate Calcium Total Creatine Kinase 29 Cancelled Urine Color Yellow Urine Appearance Clear Urine pH 6.5 Ur Specific [place] 1.008 Urine Protein Negative Urine Glucose (UA) Negative Urine Ketones Negative Urine Blood Negative Urine Nitrite Negative Urine Bilirubin Negative Urine Urobilinogen Negative Ur Leukocyte Esterase Trace H Urine WBC (Auto) 1-5 Urine RBC (Auto) 0-4 U Hyaline Cast (Auto) 0 U Epithel Cells (Auto) 20-30 H Urine Bacteria (Auto) Negative 01/04/23 01/05/23 01/05/23 11:48 05:28 05:28 WBC 1.80 L RBC 3.32 L Hgb 9.4 L Hct 27.8 L MCV 83.7 MCH 28.3 MCHC 33.8 RDW Std Deviation 42.1 RDW Coeff of Jane 14.9 H Plt Count 126 L MPV 9.6 Sodium 138 Potassium 3.7 Chloride 102 Carbon Dioxide 30 Anion Gap 6 BUN 10 Creatinine 0.81 Est Cr Clr Drug Dosing 109.9 Est GFR ( Amer) 97.5 Est GFR (Non-Af Amer) 84.1 BUN/Creatinine Ratio 12.3 Glucose 122 H POC Glucose Lactate 1.8 Calcium 8.6 Total Creatine Kinase Urine Color Urine Appearance Urine pH Ur Specific [place] Urine Protein Urine Glucose (UA) Urine Ketones Urine Blood Urine Nitrite Urine Bilirubin Urine Urobilinogen Ur Leukocyte Esterase Urine WBC (Auto) Urine RBC (Auto) U Hyaline Cast (Auto) U Epithel Cells (Auto) Urine Bacteria (Auto) 01/05/23 05:39 WBC RBC Hgb Hct MCV MCH MCHC RDW Std Deviation RDW Coeff of Jane Plt Count MPV Sodium Potassium Chloride Carbon Dioxide Anion Gap BUN Creatinine Est Cr Clr Drug Dosing Est GFR ( Amer) Est GFR (Non-Af Amer) BUN/Creatinine Ratio Glucose POC Glucose 132 H Lactate Calcium Total Creatine Kinase Urine Color Urine Appearance Urine pH Ur Specific [place] Urine Protein Urine Glucose (UA) Urine Ketones Urine Blood Urine Nitrite Urine Bilirubin Urine Urobilinogen Ur Leukocyte Esterase Urine WBC (Auto) Urine RBC (Auto) U Hyaline Cast (Auto) U Epithel Cells (Auto) Urine Bacteria (Auto) Diagnostic Findings blood cx's neg to date PG Care Time/CCT Total # of Minutes Spent Total Time Spent with Patient: Total time spent is greater than 50% in coordination of care (as documented) at patient's floor/unit and/or counseling patient: Coding Level of Care Code 12767 SUB INP/OBS CARE 3/50MIN Diagnoses Neutropenic fever D70.9; R50.81 Antineoplastic chemotherapy induced pancytopenia D61.810; T45.1X5A Sepsis A41.9 Dyspnea R06.00 Sinusitis, acute J01.90 Diarrhea R19.7 GERD (gastroesophageal reflux disease) K21.9 Esophagitis presence: without esophagitis Bipolar disorder F31.9 Current bipolar episode type: depressed Current episode severity: unspecified Urothelial cancer C68.9 DVT prophylaxis Z29.9 (7) GERD (gastroesophageal reflux disease) Esophagitis presence: without esophagitis Qualified Code(s): K21.9 - Gastro- esophageal reflux disease without esophagitis (8) Bipolar disorder Current bipolar episode type: depressed Current episode severity: unspecified
[2023-01-05] MEDS ORDERED: SODIUM CHLORIDE 0.9% 1000ML 1,000 ML IV SCH (12:00)
[2023-01-05] MEDS: guaiFENesin 600 MG TABCR PO SCH ×2 (13:15→20:47)
[2023-01-05] MEDS: SUCRALFATE 1 GM/10 ML UDC PO SCH ×3 (13:15→20:47)
[2023-01-05] MEDS: FEXOFENADINE 60 MG TAB PO SCH ×2 (13:15→20:47)
[2023-01-05] MEDS: ENOXAPARIN INJ 40 MG/0.4 ML SYR SQ SCH (13:15)
[2023-01-05] MEDS ORDERED: OPTIRAY 320 500ml IV ONE (13:35)
[2023-01-05 14:19] LABS: ANC (manual) 1.08 K/uL (1.4-6.5); Anisocytosis Present; Basophils # (manual) 0.05 K/uL (0-0.2); Basophils % (manual) 3 %; Eosinophils # (manual) 0.02 K/uL (0-0.50); Eosinophils % (manual) 1 %; Lymphocytes % (manual) 22 %; Metamyelocytes # (manual) 0.11 K/uL (0-0); Metamyelocytes % (manual) 6 %; Monocytes # (manual) 0.14 K/uL (0.11-0.59); Monocytes % (manual) 8 %; Neutrophils # (manual) 1.08 K/uL (1.40-6.50); Neutrophils % (manual) 60 %; Tear Drop Cells 1+
--- NOTE | 2023-01-05 15:43 | CT Scan Report ---
CHEST CTA for PULMONARY ARTERIES CT DOSE: 541.70 mGycm HISTORY: bladder cancer; dyspnea; eval PE, pneumonia, etc TECHNIQUE: Multiaxial CT images of the chest were performed following the intravenous administration of contrast to evaluate the pulmonary arteries. Maximal intensity projection images were also obtaine d. A dose lowering technique was utilized adhering to the principles of ALARA. COMPARISON STUDY: Chest CT 10/21/2022. FINDINGS: Normal caliber thoracic aorta with no evidence for a dissection. The heart is normal in siz e. No pleural or pericardial effusions. No filling defects within the pulmonary arteries to suggest a pulmonary embolus. Limited views of the upper abdomen demonstrate a normal liver, spleen, and adrena l glands. Normal esophagus. The thyroid gland enhances normally. Lobular right paratracheal low densi ty structure appears to represent a prominent pericardial recess. This remains unchanged. No mediasti nal or hilar lymphadenopathy. A left subclavian Port-A-Cath terminates in the distal SVC. No acute fr actures identified. No pneumothorax. The central airways are patent. A few subcentimeter nodules giorgio uring up to 3 mm remain stable and are likely benign. No new or suspicious pulmonary nodules identifi ed. No focal lung consolidations to suggest a pneumonia. IMPRESSION: 1. No evidence for a pulmonary embolus. 2. No focal lung consolidations to suggest a pneumonia. 3. No evidence for intrathoracic metastatic disease. ACT 112: Negative or not required by law. Electronically signed by: Ede Mccormick M.D. 01/05/2023 3:42 PM
--- NOTE | 2023-01-05 17:09 | Oncology Consultation ---
Date of Consultation January 05, 2023 Assessment & Plan (1) Neutropenic fever: (2) Urothelial cancer: Plan Pleasant 52-year-old female currently on neoadjuvant systemic therapy for bladder cancer who presented with fever, respiratory symptoms, nausea and Hypotension. Work-up has so far been unrevealing for potential causes of fever. She is currently on broad-spectrum antibiotics. Suspect that symptoms are likely multifactorial possibly due to viral infection as well as dehydration from chemotherapy induced nausea -Agree with broad-spectrum antibiotics for now. May de-escalate or discontinue antibiotics if she remains afebrile for 24 to 48 hours with continued negative blood cultures -No indication for G-CSF at this time since ANC remains above 1000 -Will consider discontinuing neoadjuvant systemic therapy after her fourth cycle of treatment followed by cystectomy if ok with surgeon at [facility] given overall poor tolerance of chemo. History of Present Illness Reason for Consultation: Neutropenic fever Attending Physician: Mick Thomas History of Present Illness Razia 52-year-old female known to me at [facility] with bladder cancer for which she is receiving neoadjuvant systemic therapy with dose dense MVAC. She was scheduled to receive cycle 4, day 1 of treatment on 01/04/2023. Patient was seen in oncology clinic yesterday for an acute visit as well as prior to cycle 4 of treatment with multiple complaints including fatigue, nausea, dry heaves, productive cough, fever and mild hypotension for which we recommended ED evaluation. She was subsequently admitted yesterday for possible neutropenic sepsis with ANC of about 1000. She has had extensive work-up for infection including blood cultures, urinalysis, chest x-ray, CTA chest which has so far been unrevealing except for trace leukocyte esterase in urine. She was started on broad-spectrum antibiotics and has not had any more fever episodes since yesterday Allergies Allergy/AdvReac Type Severity Reaction Status Date / Time codeine Allergy Unknown Hallucinati Verified 11/16/22 08:50 ng Home Medications Medication Instructions Recorded Confirmed Type clonazepam 0.5 mg tablet 0.5 mg PO BID #180 tabs 07/18/19 01/04/23 History escitalopram oxalate 20 mg tablet 20 mg PO QAM 07/18/19 01/04/23 History methylphenidate HCl 54 mg 54 mg PO QAM PRN ADHD 07/18/19 01/04/23 History tablet,extended release 24 hr zolpidem 12.5 mg tablet,extended 12.5 mg PO HS 07/18/19 01/04/23 History release,multiphase pantoprazole 40 mg tablet,delayed 40 mg PO UD PRN gerd 10/12/22 01/04/23 History release lamotrigine 200 mg tablet 200 mg PO BID 11/13/22 01/04/23 History Patient History Medical History ADD (attention deficit disorder) Asthma "Allergy induced asthma" Bipolar disorder Bladder cancer Dx'ed 10/2022 GERD (gastroesophageal reflux disease) History of COVID-19 06/2021, test at [place], not hosp; cough, fatigue>resolved. 06/2022, no testing-father tested positive, same symptoms>resolved in 3 days. Surgical History H/O transurethral resection of bladder tumor (TURBT) History of esophagogastroduodenoscopy (EGD) Hx of colonoscopy Hx of tonsillectomy Port-A-Cath in place (11/16/22) Left chest Access port placement. Use of fluoroscopy Dr. Sol Family History Mother Myocardial infarction Breast cancer Coronary heart disease Diabetes Heart disease Grandfather (Maternal) Myocardial infarction Coronary heart disease Stroke Diabetes Heart disease Grandmother (Maternal) Myocardial infarction Coronary heart disease Grandmother (Paternal) Cancer Family/Other Colonic polyp Denies family history of Ovarian cancer Prostate cancer Colorectal cancer Social History Smoking Status: Never smoker Second Hand Exposure: No; Hx Alcohol Use: Yes Hx Substance Use: No Preferred Language: German Communication Ability: Effective Visual Impairment: No Limitations Hearing Ability: Normal Manager Route Required: No Beliefs That Will Affect Care: None marital status: Current Living Situation: Spouse current occupational status: employed current occupation: teacher How many Children do You have: 2 Feels Safe at Home: Yes Childhood Exposure to Second-Hand Smoke: No during the past year weight has: remained stable Assistive Devices: None Review of Systems Review of Systems: All systems reviewed & are unremarkable except as noted in HPI & below Results & Data ([facility]) Vital Signs (Past 12 Hours) Vital Signs Temp Pulse Pulse Resp BP Pulse Ox O2 Del Method 01/05/23 16:15 37 C 70 16 128/74 95 Room Air 01/05/23 11:09 36.8 C 76 16 119/82 94 Room Air 01/05/23 07:40 Room Air 01/05/23 05:58 66 01/05/23 07:25 37.4 C 76 18 101/65 97 Room Air 01/05/23 06:02 84 18 126/44 L 92 Room Air 01/05/23 05:11 37.6 C H
[2023-01-05] MEDS: ZOLPIDEM TARTRATE 10 MG TAB PO SCH (20:51)
[2023-01-06] MEDS: PIPERACILLIN/TAZOBACTAM 4.5 GM in DEXTROSE 5% 100 ML IV SCH ×2 (03:06→12:31)
[2023-01-06] MEDS ORDERED: HEPARIN 100 UNIT/ML 5ML FLUSH FLUSH PRN (03:28)
[2023-01-06] MEDS: VANCOMYCIN HCL 1,250 MG in SODIUM CHLORIDE 0.9% 250 ML IV SCH (06:36)
[2023-01-06 07:23] LABS: Hematocrit (blood only) 28.2 % (37.0-47.0); Hemoglobin 9.4 g/dl (12.0-16.0); Mean Corpuscular Hemoglobin 27.9 pg (25.0-34.0); Mean Corpuscular Hgb Conc 33.3 g/dL (32.0-36.0); Mean Corpuscular Volume 83.7 fL (80.0-100.0); Mean Platelet Volume 9.7 fL (9.4-12.4); Platelet Count 172 K/uL (130-400); RDW Coefficient of Variation 15.6 % (11.5-14.5); Red Blood Count 3.37 M/uL (4.20-5.40); White Blood Count 2.49 K/ul (4.8-10.8)
[2023-01-06 07:29] LABS: BUN Creatinine Ratio 8.5 (10-20); Calcium 8.7 mg/dl (8.5-10.1); Creatinine Clr Calc Pharmacy 125.6 ml/min; Est GFR (African American) 114.3 ml/min; Est GFR (Non-African American) 98.6 ml/min; Potassium 3.7 mmol/L (3.5-5.1)
[2023-01-06 08:12] LABS: RBC Morphology Unremarkable
[2023-01-06 08:24] LABS: Basophils % (auto) 1.6 %; Eosinophils % (auto) 0.4 %; Immature Granulocytes % (auto) 14.9 %; Lymphocytes % (auto) 38.2 %; Monocytes % (auto) 19.3 %; Neutrophils % (auto) 25.6 %
[2023-01-06 08:25] LABS: Basophils # (auto) 0.04 K/uL (0-0.2); Immature Granulocytes # (auto) 0.37 K/uL (0.01-0.20); Lymphocytes # (auto) 0.95 K/uL (1.2-3.4); Monocytes # (auto) 0.48 K/uL (0.11-0.59)
[2023-01-06 08:30] LABS: Neutrophils # (auto) 0.64 K/uL (1.40-6.50)
[2023-01-06] MEDS: CONCERTA~ORDER AWAITING ACTION SCH (09:05)
[2023-01-06] MEDS: lamoTRIgine 100 MG TAB PO SCH (09:06)
[2023-01-06] MEDS: ESCITALOPRAM OXALATE 20 MG TAB PO SCH (09:06)
[2023-01-06] MEDS: SUCRALFATE 1 GM/10 ML UDC PO SCH ×2 (09:06→13:35)
[2023-01-06] MEDS: guaiFENesin 600 MG TABCR PO SCH (09:06)
[2023-01-06] MEDS: ENOXAPARIN INJ 40 MG/0.4 ML SYR SQ SCH (09:07)
[2023-01-06] MEDS: FEXOFENADINE 60 MG TAB PO SCH (09:07)
[2023-01-06] MEDS: clonazePAM 0.5 MG TAB PO SCH (09:09)
[2023-01-06] MEDS: FAMOTIDINE 20 MG in SYRINGE 3 ML IV SCH (09:09)
[2023-01-06] MEDS: PANTOprazole 40 MG in SYRINGE 0 ML IV SCH (09:10)
--- NOTE | 2023-01-06 14:04 | Discharge Summary ---
Date of Service January 06, 2023 Admission HPI Per Admitting Provider Ashley Mcgowan is a 52-year-old female who presents to the with generalized weakness, nausea. She is currently receiving chemotherapy for bladder cancer with last infusion 2 weeks ago. Generally not feeling well for the last 10 days after chemotherapy 2 weeks ago. She usually gets sick a few days after chemotherapy but then improves but this time she has progressively been getting worse. Due to hypotension in her oncologist office she was advised to come to the ER (). Yesterday she had a fever of 103 degrees Fahrenheit which improved with acetaminophen, ice and a bath. Family in her house had flu-like symptoms last week and her sinuses felt full therefore she was prescribed a course of antibiotics with Augmentin for sinusitis by her oncologist this last week. She was on this for 7 days and is now finished. Today is the best the sinus pain have felt. One episode of loose stool yesterday but no ongoing diarrhea. She had dry heaves yesterday and this morning. She has chronic chest tightness (feeling of claustrophobia) since starting chemotherapy which has not recently changed. She denies any melena or bright red blood in stool. Initially she denies any abdominal pain but on discussing her reflux and pantoprazole use she reports new onset epigastric pain for the last 14 days and taking pantoprazole regularly for the last 7 days which was midly helping but still having some epigastric discomfort. Discharge Exam gen - obese, NAD, tearful, lying flat comfortably in bed mouth - no thrush, no mucositis, MMM neck - no JVD heart - RRR, s1 s2, no murmur lungs - left basilar faint dry rales, otherwise CTA b/l abd - soft, mildly tender high epigastric region, BS+, no HSM ext - no edema, pulses 2+ b/l chest - port L upper chest clean, no erythema skin - no rash Discharge Data Allergies Allergy/AdvReac Type Severity Reaction Status Date / Time codeine Allergy Unknown Hallucinati Verified 11/16/22 08:50 ng Consultations 01/04/23 12:12 ED Decision to Admit Stat 01/04/23 18:58 Consult Oncology Routine Ordered Studies 01/05/23 11:45 CT angio chest PE protocol Routine Hospital Course (1) Neutropenic fever: 2nd to recent URI/acute sinusitis? BioFire resp panel fully negative. CXR negative. CTA chest obtained today due to c/o dyspnea - fully negative for pneumonia and PE. U/a wnl. Blood cx's thus far negative. Cont Neutropenic isolation precautions. Cont Empiric antibiotics with Vancomycin and Zosyn. If above w/u remains negative would Rx for acute bacterial sinusitis at d/c. Pharmacy records show she had gotten 7 day supply of augmentin, but pt reports only taking 5 days? (2) Antineoplastic chemotherapy induced pancytopenia: s/p recent chemotherapy for bladder/urothelial cancer. All cell lines low but acceptable. ANC still >1000. Thus neutropenia is mild at this time. Repeat CBC am. (3) Sepsis: Possible. Follow blood cx's. Cont empiric broad-spectrum IV abx. (4) Dyspnea: Due to this complaint I ordered CTA chest - this was fully neg for pneumonia/metastatic disease/PEs/other pathology. 2nd to anxiety? (5) Sinusitis, acute: as above in #1. cont IV abx until blood cx's neg x 48 hours. then either finish course of augmentin OR change to cephalosporin. (6) Diarrhea: given recent abx usage check a c diff. (7) GERD (gastroesophageal reflux disease): +/-gastritis add carafate QID cont PPI + H2 lucy EGD previously completed in 05/2018 at [facility] - Dr Efra Victor By report -- gastritis seen. Path c/w mild chronic gastritis. Normal duodenal bx. H pylori negative. At d/c consider increase in PPI to twice daily for a few weeks, then back to once daily after that. Also consider 7-10 day run of carafate. (8) Bipolar disorder: Continue lamotrigine, Lexapro, Clonazepam and Zolpidem (9) Urothelial cancer: Under the care of [facility] locally, Dr Pickering at [facility], and [facility] for future bladder surgery (planned for March). Pt is hoping to stop chemo soon and proceed directly to surgery. Defer that decision to Dr Pickering. (10) DVT prophylaxis: add lovenox 40mg once daily first dose now Plan updated pt's by phone this evening discussed pt's care with Dr Pickering from heme/onc Discharge Plan Discharge Items Reason For Visit: NEUTROPENIC SEPSIS Follow-up/Referrals: Pro,Dewayne W., MD [Primary Care Provider] - Medications and DC Order Prescriptions: No Action escitalopram oxalate 20 mg tablet 20 mg PO QAM Patient Comments: outside provider prescritps clonazepam 0.5 mg tablet 0.5 mg PO BID Qty: 180 Patient Comments: outside provider prescripts methylphenidate HCl 54 mg tablet extended release 24hr 54 mg PO QAM PRN (Reason: ADHD) Patient Comments: outside provider prescripted zolpidem 12.5 mg tablet,ext release multiphase 12.5 mg PO HS Patient Comments: outside provider prescripts lamotrigine 200 mg tablet 200 mg PO BID Patient Comments: outside provider prescripts pantoprazole 40 mg tablet,delayed release (DR/EC) 40 mg PO UD PRN (Reason: gerd) Admission Data Admit Date/Time: 01/04/23 11:21 Attending Provider: Mick Thomas Admit Provider: Mick Moreno Primary Care Provider: Dewayne Bryant Other Providers: Mick Moreno ; Shannan Pickering Coding Diagnoses Neutropenic fever D70.9; R50.81 Antineoplastic chemotherapy induced pancytopenia D61.810; T45.1X5A Sepsis A41.9 Dyspnea R06.00 Sinusitis, acute J01.90 Diarrhea R19.7 GERD (gastroesophageal reflux disease) K21.9 Esophagitis presence: without esophagitis Bipolar disorder F31.9 Current bipolar episode type: depressed Current episode severity: unspecified Urothelial cancer C68.9 DVT prophylaxis Z29.9
[2023-01-06] MEDS ORDERED: FAMOTIDINE 20 MG TAB PO SCH (21:00)
[2023-01-06] MEDS ORDERED: PANTOprazole 40 MG TAB PO SCH (21:00)
== END 2023-01-06 16:08 | disposition home or self-care (01) | DRG 871 ==
LOC: ED 08:29 → SUATTDRO 11:21 → 2E 11:21

== ENCOUNTER 2024-03-03 10:20 | Inpatient (IN) ==
--- NOTE | 2024-03-03 10:36 | Emergency Department Note ---
Impression & Plan Acute appendicitis, Abdominal pain ED Provider Note NAME: RONALD STANTON AGE: 54 SEX: F : 1970 ARRIVES VIA: Walk-In INFORMANT: Patient, ED PROVIDER(S): Chris Huerta MD CHIEF COMPLAINT: Abdominal pain MEDICAL DECISION MAKING: Patient presents due to concern for migratory lower abdominal pain. IV was established and blood was obtained. Chest x-ray along with bio fire also obtained. Patient did receive IV fluids and IV Zofran. Patient with a normal white count H&H and platelet count kidney function was unremarkable but with prerenal azotemia. Not nonfasting blood sugar of 108. LFTs and lipase unremarkable urinalysis without evidence of obvious blood but may have infection as the patient does have leukocytes white cells and bacteria but without epithelial cells. Bio fire negative. Chest x-ray clear. The patient CT abdomen pelvis does show concern for acute appendicitis. Patient was ordered Mefoxin. There is no abscess or pneumoperitoneum. I did inform the patient of the findings I did speak with on-call general surgery Jennifer upShauntoCATY lombardi and Dr. Ferro. Patient was seen and evaluated and decision was made for antibiotic administration and the patient was admitted to the surgical service. Discussion w/ other healthcare providers: Jennifer Avelar PA-C with general surgery Dr. Ferro with general surgery Prior /Outside records reviewed: None Differential diagnosis: Appendicitis, ovarian cyst, ovarian torsion, ectopic , TOA, PID, diverticulitis, UTI, obstruction, inflammatory bowel disease, renal colic, PUD, pancreatitis, biliary pathology, hernia, volvulus, constipation, as well as other pathologies were considered. Diagnostics, as interpreted by me: ECG: None Cardiac monitoring: An order was placed for continuous cardiac monitoring. The monitor shows a rate of 77 with sinus rhythm. Patient was placed on pulse oximetry Medical decision rules: None Imaging studies: I informally interpreted the patient's CT abdomen pelvis does not show obvious obstruction with formal report to follow. I informally interpreted the patient's chest x-ray which does not show obvious pneumonia or pneumothorax with formal report to follow. HPI: Patient presents due to concern for abdominal pain. The patient states that she initially had some upset stomach on Wednesday and did take some Nexium. The patient states that the following day she developed some abdominal pain which has been fairly constant and was initially periumbilical but has now moved down to her lower abdomen. The patient states that she did have a CT scan performed about a month ago for surveillance purposes as the patient does have a history of bladder cancer status post removal and subsequent neobladder procedure completed by Dr. Corrigan with urology at [facility] which was completed about a year ago March 16, 2023. Patient denies any chest pains or shortness of breath. She has had some cough which is nonproductive. 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 Patient states that she is cancer free in remission and not on any active chemotherapy. The patient did receive courses of chemotherapy but no radiation treatment during the time that she had her bladder cancer. Patient is currently only under surveillance and cancer free. Patient has followed with Dr. Raheel garcia for oncology. Patient did take some Tylenol for abdominal pain but it has not improved the discomfort. She has had associated nausea but no vomiting. Patient denies any fever. She has had some associated constipation related symptoms with decreased bowel movement which did improve with suppository but only a small amount. Patient denies any narcotic or antihistamine use. Patient states that she does suffer from allergies and has some associated nasal congestion. PAST MEDICAL HISTORY: See Below PAST SURGICAL HISTORY: See Below SOCIAL HISTORY: See Below HOME MEDICATIONS: See Below ALLERGIES: See Below VITALS: See Below PHYSICAL EXAMINATION: GENERAL: NAD, non-toxic. Wearing glasses. EYE EXAM: Normal conjunctiva. PERRL, no anisocoria and EOM's grossly intact w/o pain. OROPHARYNX: Moist mucus membranes, grossly normal dentition. NECK: Trachea midline, no stridor. Supple, no nuchal rigidity, no adenopathy, non-tender. No signs of meningismus. FROM of the neck with good chin to chest and neck extension. LUNGS: Clear to auscultation. Normal chest wall mechanics. HEART: NSR, no MRG. ABDOMEN: Abdomen soft, right-sided and suprapubic pain, equivocal obturators negative psoas, no masses, no rebound or guarding. BACK: No CVA TTP. SKIN: No rashes and no bruising. UPPER EXTREMITIES: Upper extremities are grossly normal. LOWER EXTREMITIES: Grossly normal, no edema. NEURO EXAM: A&O x3, cranial nerves II-XII grossly intact, normal speech, moves all 4 extremities. Past Med/Surg History Medical History Rectal bleeding Sinusitis, acute Diarrhea Dyspnea Antineoplastic chemotherapy induced pancytopenia Neutropenic fever Urothelial cancer Bladder cancer Dx'ed 10/2022--"RECENTLY ADMITTED TO [facility], D/C ON 01/06/23, TO GET ME HYDRATED AND FEELING BETTER AFTER CHEMO" Asthma "Allergy induced asthma" History of COVID-19 06/2021, test at [place], not hosp; cough, fatigue>resolved. 06/2022, no testing-father tested positive, same symptoms>resolved in 3 days. ADD (attention deficit disorder) GERD (gastroesophageal reflux disease) Bipolar disorder Surgical History Port-A-Cath in place (11/16/22) Left chest Access port placement. Pt unsure of type of port. H/O transurethral resection of bladder tumor (TURBT) History of esophagogastroduodenoscopy (EGD) Hx of colonoscopy Hx of tonsillectomy Family History Mother Myocardial infarction Breast cancer Coronary heart disease Diabetes Heart disease Grandfather (Maternal) Myocardial infarction Coronary heart disease Stroke Diabetes Heart disease Grandmother (Maternal) Myocardial infarction Coronary heart disease Grandmother (Paternal) Cancer Family/Other Colonic polyp Denies family history of Ovarian cancer Prostate cancer Colorectal cancer Social History Smoking Status: Never smoker Second Hand Exposure: No; Do You Dip or Chew Tobacco: No; Hx Alcohol Use: No Hx Substance Use: No Preferred Language: Indonesian Communication Ability: Effective Visual Impairment: No Limitations Hearing Ability: Normal Environmental Sampler Required: No Beliefs That Will Affect Care: None marital status: Current Living Situation: Spouse current occupational status: employed current occupation: teacher How many Children do You have: 2 Feels Safe at Home: Yes Childhood Exposure to Second-Hand Smoke: No Diet: regular during the past year weight has: remained stable Assistive Devices: None Allergies Allergies Allergy/AdvReac Type Severity Reaction Status Date / Time codeine Allergy Unknown Hallucinati Verified 11/17/23 17:04 ng Home Meds Home Medications Medication Instructions Recorded Confirmed clonazepam 0.5 mg tablet 0.5 mg PO HS #180 tabs 07/18/19 03/03/24 escitalopram oxalate 20 mg tablet 20 mg PO QAM 07/18/19 03/03/24 methylphenidate HCl 54 mg 54 mg PO QAM ADHD 07/18/19 03/03/24 tablet,extended release 24 hr zolpidem 12.5 mg tablet,extended 12.5 mg PO HS 07/18/19 03/03/24 release,multiphase lamotrigine 200 mg tablet 200 mg PO BID 11/13/22 03/03/24 Results & Data (ED) Vital Signs Vital Signs - 24 hr 03/03/24 10:23 03/03/24 11:27 03/03/24 12:49 Temperature 36.6 C Temperature Source Oral Pulse Rate 84 Pulse Rate [Apical] 72 Pulse Rhythm Regular Pulse Strength Normal Respiratory Rate 18 20 Respiratory Effort / Characteristics Non-Labored Spontaneous Respiratory Depth Normal Respiratory Pattern Regular Blood Pressure 134/85 Blood Pressure [Right Arm] 110/56 L Blood Pressure Mean 101 Blood Pressure Mean [Right Arm] 74 Blood Pressure Position Sitting Pulse Oximetry 98 98 98 Oxygen Delivery Method Room Air Room Air Room Air Sepsis Recent Fever Within 48 Hours No Sepsis New/Unexplained Change in Mental Status No Sepsis Action Taken by Nursing No Action Required 03/03/24 16:16 Temperature 36.5 C Temperature Source Oral Pulse Rate Pulse Rate [Apical] 76 Pulse Rhythm Pulse Strength Respiratory Rate 18 Respiratory Effort / Characteristics Respiratory Depth Respiratory Pattern Blood Pressure Blood Pressure [Right Arm] 96/36 L Blood Pressure Mean Blood Pressure Mean [Right Arm] 56 Blood Pressure Position Pulse Oximetry 98 Oxygen Delivery Method Room Air Sepsis Recent Fever Within 48 Hours Sepsis New/Unexplained Change in Mental Status Sepsis Action Taken by Custodial Medications Current Medication List: was personally reviewed by me Laboratory Data Attestation: I reviewed the patient's lab results. 03/03/24 11:17 03/03/24 11:17 Lab Results 03/03/24 03/03/24 Range/Units 11:17 Unknown WBC 7.67 (4.8-10.8) K/ul RBC 4.67 (4.20-5.40) M/uL Hgb 13.1 (12.0-16.0) g/dl Hct 40.1 (37.0-47.0) % MCV 85.9 (80.0-100.0) fL MCH 28.1 (25.0-34.0) pg MCHC 32.7 (32.0-36.0) g/dL RDW Std Deviation 43.8 (36.4-46.3) fL RDW Coeff of Jane 13.9 (11.5-14.5) % Plt Count 161 (130-400) K/uL MPV 9.3 L (9.4-12.4) fL Immature Gran % (Auto) 0.3 % Neut % (Auto) 61.9 % Lymph % (Auto) 31.6 % Logan % (Auto) 6.1 % Eos % (Auto) 0.0 % Baso % (Auto) 0.1 % Neut # (Auto) 4.75 (1.40-6.50) K/uL Lymph # (Auto) 2.42 (1.20-3.40) K/uL Logan # (Auto) 0.47 (0.11-0.59) K/uL Eos # (Auto) 0.00 (0.00-0.50) K/uL Baso # (Auto) 0.01 (0.00-0.20) K/uL Immature Gran # (Auto) 0.02 (0.01-0.20) K/uL Sodium 139 (136-145) mmol/L Potassium 4.2 (3.5-5.1) mmol/L Chloride 102 (98-107) mmol/L Carbon Dioxide 32 (21-32) mmol/L Anion Gap 5 (3-11) BUN 18 (6-23) mg/dl Creatinine 0.84 (0.6-1.2) mg/dl Est Cr Clr Drug Dosing 84.9 ml/min Est GFR ( Amer) 92.0 ml/min Est GFR (Non-Af Amer) 79.3 ml/min BUN/Creatinine Ratio 21.4 H (10-20) Glucose 108 H (70-99(Fasting)) mg/dl Calcium 9.3 (8.6-10.3) mg/dl Total Bilirubin 0.5 (0.2-1.0) mg/dl AST 13 (13-39) U/L ALT 12 (7-52) U/L Alkaline Phosphatase 78 (34-104) U/L Total Protein 6.8 (6.0-8.3) gm/dl Albumin 4.3 (3.4-5.0) gm/dl Globulin 2.5 (2.5-4.0) gm/dl Albumin/Globulin Ratio 1.7 (0.9-2) Lipase 27 (11-82) U/L Urine Color Yellow Urine Appearance Clear (Clear) Urine pH 6.5 (4.5-7.5) Ur Specific [place] 1.011 (1.000-1.030) Urine Protein Negative (Negative) Urine Glucose (UA) Negative (Negative) Urine Ketones Negative (Negative) Urine Blood Negative (Negative) Urine Nitrite Negative (Negative) Urine Bilirubin Negative (Negative) Urine Urobilinogen Negative (Negative) Ur Leukocyte Esterase 1+ H (Negative) Urine WBC (Auto) >50 H (0-5) /hpf Urine RBC (Auto) 0-2 (0-2) /hpf U Hyaline Cast (Auto) 0-2 (0-2) /lpf U Epithel Cells (Auto) 0-2 (0-2) /hpf Urine Bacteria (Auto) 1+ H (None Seen) Adenovirus (PCR) Not Detected (NotDetected) B. pertussis DNA (PCR) Not Detected (NotDetected) B.parapertussis DNA PCR Not Detected (NotDetected) C. pneumoniae DNA (PCR) Not Detected (NotDetected) Coronavirus OC43 (PCR) Not Detected (NotDetected) Coronavirus HKU1 (PCR) Not Detected (NotDetected) Coronavirus 229E (PCR) Not Detected (NotDetected) SARS-CoV-2 (PCR) Not Detected (NotDetected) Coronavirus NL63 (PCR) Not Detected (NotDetected) Human Metapneumovir PCR Not Detected (NotDetected) Influenza Type A (PCR) Not Detected (NotDetected) Influenza Type B (PCR) Not Detected (NotDetected) M. pneumoniae (PCR) Not Detected (NotDetected) Parainfluenza 1 (PCR) Not Detected (NotDetected) Parainfluenza 2 (PCR) Not Detected (NotDetected) Parainfluenza 3 (PCR) Not Detected (NotDetected) Parainfluenza 4 (PCR) Not Detected (NotDetected) RSV (PCR) Not Detected (NotDetected) Entero/Rhino (PCR) Not Detected (NotDetected) Administered Medications Discontinued Medications Sodium Chloride (Nss) 500 mls @ 999 mls/hr IV .Q31M STA Stop: 03/03/24 11:36 Last Infusion: 03/03/24 11:54 Dose: Infused Documented By: Admin: 03/03/24 11:21 Dose: 999 mls/hr Documented By: MARY Cefoxitin Sodium (Mefoxin) 2,000 mg in 60 mls @ 100 mls/hr IV NOW STA Stop: 03/03/24 14:02 Last Infusion: 03/03/24 14:13 Dose: Infused Documented By: NRAravind Admin: 03/03/24 13:36 Dose: 100 mls/hr Documented By: MARY Ioversol (Optiray 320 100ml) 93 ml IV ONCE ONE Stop: 03/03/24 12:49 Last Admin: 03/03/24 12:40 Dose: 93 ml Documented By: HILL Ondansetron HCl (Ondansetron Inj 2 Mg/Ml 2 Ml Vial) 4 mg IV NOW STA Stop: 03/03/24 11:07 Last Admin: 03/03/24 11:21 Dose: 4 mg Documented By: MARY Imaging Data Radiologist's Impression: Abdomen/Pelvis CT 03/03/24 11:[address] WITH IV CONTRAST CT DOSE: 1392.43 mGy.cm HISTORY: Acute right lower quadrant abdominal pain periumb and R sided ab pain, neg walker's, RLQ ivone TECHNIQUE: Multiaxial CT images of the abdomen and pelvis were performed following the IV administration of 93 cc of Optiray, A dose lowering technique was utilized adhering to the principles of ALARA. COMPARISON STUDY: 02/02/2024 FINDINGS: Clear lung bases. The liver, spleen, adrenal glands, kidneys and pancreas are unremarkable. There is no biliary or pancreatic ductal dilatation. There is no hydronephrosis. There are postoperative findings consistent with cystectomy with apparent neobladder formation. There is no abdominal or pelvic lymphadenopathy. The caliber and wall thickness of small and large bowel are normal. Dilated and inflamed appendix with mucosal hyperemia measures up to 11 mm transversely with adjacent inflammatory stranding. Subcentimeter ileocolic lymph nodes. There are no fluid collections. Major vasculature is patent. A bone island within the left acetabulum is benign. There are no suspicious osseous lesions within the visualized skeletal structures. IMPRESSION: 1. Acute appendicitis. No abscess or pneumoperitoneum. 2. No bowel obstruction. ACT 112: Negative or not required by law. The above report was generated using voice recognition software. It may contain grammatical, syntax or spelling errors. Electronically signed by: Oscar Bonilla M.D. 03/03/2024 1:14 PM Chest X-Ray 03/03/24 11:06 XR chest 1V portable HISTORY: 54 years-old Female cough COMPARISON: Chest CT 02/02/2024 TECHNIQUE: AP view of the chest FINDINGS: Cardiomediastinal and hilar silhouettes are within normal limits. Left subclavian Ssvrqj-h-Upri catheter with distal tip terminating in the expected location of the mid SVC. No pneumothorax, pleural effusion or airspace consolidation. Bones appear grossly intact. IMPRESSION: No acute process. ACT 112: Negative or not required by law. The above report was generated using voice recognition software. It may contain grammatical, syntax or spelling errors. Electronically signed by: Oscar Bonilla M.D. 03/03/2024 12:46 PM Discharge Plan Visit Data Chief Complaint: Abdominal Pain Stated Complaint: abd pains, ref by doc ED Provider: Chris Huerta Discharge Problem: Acute appendicitis, Abdominal pain Forms Stand Alone Forms: mimoOn Prescriptions Prescriptions: No Action escitalopram oxalate 20 mg tablet 20 mg PO QAM Patient Comments: outside provider prescritps clonazepam 0.5 mg tablet 0.5 mg PO HS Qty: 180 Patient Comments: outside provider prescripts Rx Instructions: usually takes at night unless she needs one during the day methylphenidate HCl 54 mg tablet extended release 24hr 54 mg PO QAM Patient Comments: outside provider prescripted zolpidem 12.5 mg tablet,ext release multiphase 12.5 mg PO HS Patient Comments: outside provider prescripts lamotrigine 200 mg tablet 200 mg PO BID Patient Comments: outside provider prescripts Referrals Referrals: Dewayne Bryant MD [Primary Care Provider] - Discharge Problem: Acute appendicitis Qualifiers: Acute appendicitis type: with localized peritonitis Appendicitis gangrene presence: without gangrene Appendicitis perforation presence: without perforation Appendicitis abscess presence: without abscess Qualified Code(s): K 35.30 - Acute appendicitis with localized peritonitis, without perforation or gangrene Abdominal pain Qualifiers: Abdominal location: right lower quadrant Qualified Code(s): R10.31 - Right lower quadrant pain
[2024-03-03] MEDS: ONDANSETRON INJ 2 MG/ML 2 ML VIAL IV STA (11:21)
[2024-03-03] MEDS: SODIUM CHLORIDE 0.9% 500 ML IV STA (11:21)
[2024-03-03 11:39] LABS: Basophils # (auto) 0.01 K/uL (0.00-0.20); Basophils % (auto) 0.1 %; Hematocrit (blood only) 40.1 % (37.0-47.0); Hemoglobin 13.1 g/dl (12.0-16.0); Immature Granulocytes # (auto) 0.02 K/uL (0.01-0.20); Immature Granulocytes % (auto) 0.3 %; Lymphocytes # (auto) 2.42 K/uL (1.20-3.40); Lymphocytes % (auto) 31.6 %; Mean Corpuscular Hemoglobin 28.1 pg (25.0-34.0); Mean Corpuscular Hgb Conc 32.7 g/dL (32.0-36.0); Mean Corpuscular Volume 85.9 fL (80.0-100.0); Mean Platelet Volume 9.3 fL (9.4-12.4); Monocytes # (auto) 0.47 K/uL (0.11-0.59); Monocytes % (auto) 6.1 %; Neutrophils # (auto) 4.75 K/uL (1.40-6.50); Neutrophils % (auto) 61.9 %; Platelet Count 161 K/uL (130-400); RDW Coefficient of Variation 13.9 % (11.5-14.5); RDW Standard Deviation 43.8 fL (36.4-46.3); Red Blood Count 4.67 M/uL (4.20-5.40); White Blood Count 7.67 K/ul (4.8-10.8)
[2024-03-03 11:54] LABS: Appearance Urine Clear (Clear); Bacteria Urine Automated 1+ (None Seen); Bilirubin Urine Negative (Negative); Blood Urine Negative (Negative); Cast Urine Automated 0-2 /lpf (0-2); Color Urine Yellow; Epithelial Cell Urine Auto 0-2 /hpf (0-2); Glucose Urine UA Negative (Negative); Ketones Urine Negative (Negative); Leukocyte Esterase Urine 1+ (Negative); Nitrite Urine Negative (Negative); Protein Urine Negative (Negative); RBC Urine Automated 0-2 /hpf (0-2); Specific Gravity Urine 1.011 (1.000-1.030); Urobilinogen Urine Negative (Negative); WBC Urine Automated >50 /hpf (0-5); pH Urine 6.5 (4.5-7.5)
[2024-03-03 12:02] LABS: Albumin Globulin Ratio 1.7 (0.9-2); Albumin Level 4.3 gm/dl (3.4-5.0); BUN Creatinine Ratio 21.4 (10-20); Bilirubin,Total 0.5 mg/dl (0.2-1.0); Calcium 9.3 mg/dl (8.6-10.3); Creatinine Clr Calc Pharmacy 84.9 ml/min; Est GFR (Non-African American) 79.3 ml/min; Globulin 2.5 gm/dl (2.5-4.0); Potassium 4.2 mmol/L (3.5-5.1); Total Protein 6.8 gm/dl (6.0-8.3)
[2024-03-03] MEDS: OPTIRAY 320 100ml IV ONE (12:40)
[2024-03-03 12:46] LABS: Adenovirus PCR Not Detected (NotDetected); Bordetella parapertussis PCR Not Detected (NotDetected); Bordetella pertussis PCR Not Detected (NotDetected); Chlamydia pneumoniae PCR Not Detected (NotDetected); Coronavirus 229E PCR Not Detected (NotDetected); Coronavirus CoV-2 (COVID19)PCR Not Detected (NotDetected); Coronavirus HKU1 PCR Not Detected (NotDetected); Coronavirus NL63 PCR Not Detected (NotDetected); Coronavirus OC43PCR Not Detected (NotDetected); Human Metapneumovirus PCR Not Detected (NotDetected); Influenza A PCR Not Detected (NotDetected); Influenza B PCR Not Detected (NotDetected); Mycoplasma pneumoniae PCR Not Detected (NotDetected); Parainfluenza Virus 1 PCR Not Detected (NotDetected); Parainfluenza Virus 2 PCR Not Detected (NotDetected); Parainfluenza Virus 3 PCR Not Detected (NotDetected); Parainfluenza Virus 4 PCR Not Detected (NotDetected); Respiratory Syncytial VirusPCR Not Detected (NotDetected); Rhinovirus/Enterovirus PCR Not Detected (NotDetected)
--- NOTE | 2024-03-03 12:48 | XRay Report ---
XR chest 1V portable HISTORY: 54 years-old Female cough COMPARISON: Chest CT 02/02/2024 TECHNIQUE: AP view of the chest FINDINGS: Cardiomediastinal and hilar silhouettes are within normal limits. Left subclavian [address] le[address] ter with distal tip terminating in the expected location of the mid SVC. No pneumothorax, pleural eff usion or airspace consolidation. Bones appear grossly intact. IMPRESSION: No acute process. ACT 112: Negative or not required by law. The above report was generated using voice recognition software. It may contain grammatical, syntax o r spelling errors. Electronically signed by: Oscar Bonilla M.D. 03/03/2024 12:46 PM
--- NOTE | 2024-03-03 13:16 | CT Scan Report ---
ABDOMEN AND PELVIS CT WITH IV CONTRAST CT DOSE: 1392.43 mGy.cm HISTORY: Acute right lower quadrant abdominal pain periumb and R sided ab pain, neg walker's, RLQ pa i TECHNIQUE: Multiaxial CT images of the abdomen and pelvis were performed following the IV administrat ion of 93 cc of Optiray, A dose lowering technique was utilized adhering to the principles of ALARA. COMPARISON STUDY: 02/02/2024 FINDINGS: Clear lung bases. The liver, spleen, adrenal glands, kidneys and pancreas are unremarkable. There is no biliary or pancreatic ductal dilatation. There is no hydronephrosis. There are postopera tive findings consistent with cystectomy with apparent neobladder formation. There is no abdominal or pelvic lymphadenopathy. The caliber and wall thickness of small and large bowel are normal. Dilated and inflamed appendix with mucosal hyperemia measures up to 11 mm transversely with adjacent inflamma tory stranding. Subcentimeter ileocolic lymph nodes. There are no fluid collections. Major vasculatur e is patent. A bone island within the left acetabulum is benign. There are no suspicious osseous lesi ons within the visualized skeletal structures. IMPRESSION: 1. Acute appendicitis. No abscess or pneumoperitoneum. 2. No bowel obstruction. ACT 112: Negative or not required by law. The above report was generated using voice recognition software. It may contain grammatical, syntax o r spelling errors. Electronically signed by: Oscar Bonilla M.D. 03/03/2024 1:14 PM
[2024-03-03] MEDS: cefOXitin 2,000 MG/60 ML BAG IV STA (13:36)
--- NOTE | 2024-03-03 15:25 | History & Physical Report ---
Date of Service March 03, 2024 Assessment & Plan (1) Acute appendicitis: Plan: 54 year-old female with history of bladder cancer s/p pelvic exenteration surgery with creation of neobladder of small bowel and duplication of right and left ureters presents to emergency department with 3 day history of abdominal pain with associated nausea and decreased appetite. CT scan with acute appendicitis without perforation or abscess. She is afebrile and has no leukoc ytosis. Given patients extensive pelvic exenteration surgery and findings of early acute uncomplicated appendicitis, Dr. Ferro discussed recommendations of nonoperative approach first with IV antibiotics and possibly interval appendectomy in 6-8 weeks. Will plan to admit to med/surg, IV Zosyn, pain management and antiemetics as needed. Dr. Ferro has seen and examined patient, see addendum for further recommendations/plan. Plan I have seen and examined the patient personally and agree with the above assessment and plan. In brief, she has right lower quadrant abdominal pain and tenderness on examination. CT scan demonstrates acute appendicitis. She has a history of extensive abdominal surgery due to bladder cancer. She is status pos t pelvic exenteration with creation of neobladder of the small bowel with anastomosis of the ureters into the neobladder. She has a duplicate ureteral system bilaterally. I independently reviewed the CT scan and also reviewed with the radiologist. The appendix appears to be sitting directly on the ureters on the right side near the point of junction with the neobladder. Had a long discussion with the patient concerning the CT findings. She has a hostile abdomen, and any surgery at this juncture would be fraught with the possibility of very serious complications such as ureteral injury or disruption of the neobladder/ureteral junction. As such, I recommend IV antibiotics and observation at this time. We will have her admitted to the hospital, and place her on IV fluids, IV antibiotics, pain control. We will give her clear liquid diet. All her questions were answered, and she is agreeable with this plan. History of Present Illness Chief Complaint: abdominal pain Primary Care Provider: Dewayne Bryant MD Ashley is a 54 year-old female with history of bladder cancer who is s/p chemotherapy and pelvic exenteration surgery in March of 2023 at [facility] with creation of neobladder and duplication of right and left ureters who presented to ED with abdominal pain that started Wednesday more located in mid abdomen with radiation of pain to the low mid abdomen starting Wednesday with associated sweats, nausea, and low appetite. Pain has been chronic since. No fevers or chills. No diarrhea, no blood in stools. She has not taken anything for the pain recently as it was not helping at home. In review of her operative report from [facility] she had pelvic exenteration surgery with neobladder creation with a loop of small intestine. She currently is rating her pain about 7/10. Zofran helped with nausea. Has not had any pain medication. Allergies Allergy/AdvReac Type Severity Reaction Status Date / Time codeine Allergy Unknown Hallucinati Verified 11/17/23 17:04 ng Home Medications Medication Instructions Recorded Confirmed Type clonazepam 0.5 mg tablet 0.5 mg PO HS #180 tabs 07/18/19 03/03/24 History escitalopram oxalate 20 mg tablet 20 mg PO QAM 07/18/19 03/03/24 History methylphenidate HCl 54 mg 54 mg PO QAM ADHD 07/18/19 03/03/24 History tablet,extended release 24 hr zolpidem 12.5 mg tablet,extended 12.5 mg PO HS 07/18/19 03/03/24 History release,multiphase lamotrigine 200 mg tablet 200 mg PO BID 11/13/22 03/03/24 History Past Med/Surg History Medical History Rectal bleeding Sinusitis, acute Diarrhea Dyspnea Antineoplastic chemotherapy induced pancytopenia Neutropenic fever Urothelial cancer Bladder cancer Dx'ed 10/2022--"RECENTLY ADMITTED TO [facility], D/C ON 01/06/23, TO GET ME HYDRATED AND FEELING BETTER AFTER CHEMO" Asthma "Allergy induced asthma" History of COVID-19 06/2021, test at [place], not hosp; cough, fatigue>resolved. 06/2022, no testing-father tested positive, same symptoms>resolved in 3 days. ADD (attention deficit disorder) GERD (gastroesophageal reflux disease) Bipolar disorder Surgical History Port-A-Cath in place (11/16/22) Left chest Access port placement. Pt unsure of type of port. H/O transurethral resection of bladder tumor (TURBT) History of esophagogastroduodenoscopy (EGD) Hx of colonoscopy Hx of tonsillectomy Family History Mother Myocardial infarction Breast cancer Coronary heart disease Diabetes Heart disease Grandfather (Maternal) Myocardial infarction Coronary heart disease Stroke Diabetes Heart disease Grandmother (Maternal) Myocardial infarction Coronary heart disease Grandmother (Paternal) Cancer Family/Other Colonic polyp Denies family history of Ovarian cancer Prostate cancer Colorectal cancer Social History Smoking Status: Never smoker Second Hand Exposure: No; Do You Dip or Chew Tobacco: No; Hx Alcohol Use: No Hx Substance Use: No Preferred Language: Grenadian Communication Ability: Effective Visual Impairment: No Limitations Hearing Ability: Normal Metal Dealer Required: No Beliefs That Will Affect Care: None marital status: Current Living Situation: Spouse current occupational status: employed current occupation: teacher How many Children do You have: 2 Feels Safe at Home: Yes Childhood Exposure to Second-Hand Smoke: No Diet: regular during the past year weight has: remained stable Assistive Devices: None Physical Exam Constitutional: WD/WN, vitals as above + obese, cooperative and comfortable; no acute distress and not ill appearing Respiratory: normal respiratory effort, lungs clear to auscultation Cardiovascular: RRR, no murmur, no edema Gastrointestinal (Abdomen): Inspection/Auscultation: abdomen normal to inspection and + abdominal surgical scar (low midline laparotomy scar); abdomen not distended Percussion/Palpation: + abdomen tender (mid low abdomen) and abdomen soft; no guarding, abdomen not rigid and abdomen not firm no rigidity, guarding, rebound, or peritonitis Skin: no rashes, warm and dry Psychiatric: Orientation: alert and oriented x 3 Results & Data Results & Data Vital Signs (Past 12 Hours) Vital Signs Temp Pulse Pulse Resp BP BP Pulse Ox 03/03/24 12:49 72 20 110/56 L 98 03/03/24 11:27 98 03/03/24 10:23 36.6 C 84 18 134/85 98 O2 Del Method 03/03/24 12:49 Room Air 03/03/24 11:27 Room Air 03/03/24 10:23 Room Air Laboratory Results 03/03/24 03/03/24 Range/Units Unknown 11:17 WBC 7.67 (4.8-10.8) K/ul RBC 4.67 (4.20-5.40) M/uL Hgb 13.1 (12.0-16.0) g/dl Hct 40.1 (37.0-47.0) % MCV 85.9 (80.0-100.0) fL MCH 28.1 (25.0-34.0) pg MCHC 32.7 (32.0-36.0) g/dL RDW Std Deviation 43.8 (36.4-46.3) fL RDW Coeff of Jane 13.9 (11.5-14.5) % Plt Count 161 (130-400) K/uL MPV 9.3 L (9.4-12.4) fL Immature Gran % (Auto) 0.3 % Neut % (Auto) 61.9 % Lymph % (Auto) 31.6 % [place] % (Auto) 6.1 % Eos % (Auto) 0.0 % Baso % (Auto) 0.1 % Neut # (Auto) 4.75 (1.40-6.50) K/uL Lymph # (Auto) 2.42 (1.20-3.40) K/uL [place] # (Auto) 0.47 (0.11-0.59) K/uL Eos # (Auto) 0.00 (0.00-0.50) K/uL Baso # (Auto) 0.01 (0.00-0.20) K/uL Immature Gran # (Auto) 0.02 (0.01-0.20) K/uL Sodium 139 (136-145) mmol/L Potassium 4.2 (3.5-5.1) mmol/L Chloride 102 (98-107) mmol/L Carbon Dioxide 32 (21-32) mmol/L Anion Gap 5 (3-11) BUN 18 (6-23) mg/dl Creatinine 0.84 (0.6-1.2) mg/dl Est Cr Clr Drug Dosing 84.9 ml/min Est GFR ( Amer) 92.0 ml/min Est GFR (Non-Af Amer) 79.3 ml/min BUN/Creatinine Ratio 21.4 H (10-20) Glucose 108 H (70-99(Fasting)) mg/dl Calcium 9.3 (8.6-10.3) mg/dl Total Bilirubin 0.5 (0.2-1.0) mg/dl AST 13 (13-39) U/L ALT 12 (7-52) U/L Alkaline Phosphatase 78 (34-104) U/L Total Protein 6.8 (6.0-8.3) gm/dl Albumin 4.3 (3.4-5.0) gm/dl Globulin 2.5 (2.5-4.0) gm/dl Albumin/Globulin Ratio 1.7 (0.9-2) Lipase 27 (11-82) U/L Urine Color Yellow Urine Appearance Clear (Clear) Urine pH 6.5 (4.5-7.5) Ur Specific [place] 1.011 (1.000-1.030) Urine Protein Negative (Negative) Urine Glucose (UA) Negative (Negative) Urine Ketones Negative (Negative) Urine Blood Negative (Negative) Urine Nitrite Negative (Negative) Urine Bilirubin Negative (Negative) Urine Urobilinogen Negative (Negative) Ur Leukocyte Esterase 1+ H (Negative) Urine WBC (Auto) >50 H (0-5) /hpf Urine RBC (Auto) 0-2 (0-2) /hpf U Hyaline Cast (Auto) 0-2 (0-2) /lpf U Epithel Cells (Auto) 0-2 (0-2) /hpf Urine Bacteria (Auto) 1+ H (None Seen) Adenovirus (PCR) Not Detected (NotDetected) B. pertussis DNA (PCR) Not Detected (NotDetected) B.parapertussis DNA PCR Not Detected (NotDetected) C. pneumoniae DNA (PCR) Not Detected (NotDetected) Coronavirus OC43 (PCR) Not Detected (NotDetected) Coronavirus HKU1 (PCR) Not Detected (NotDetected) Coronavirus 229E (PCR) Not Detected (NotDetected) SARS-CoV-2 (PCR) Not Detected (NotDetected) Coronavirus NL63 (PCR) Not Detected (NotDetected) Human Metapneumovir PCR Not Detected (NotDetected) Influenza Type A (PCR) Not Detected (NotDetected) Influenza Type B (PCR) Not Detected (NotDetected) M. pneumoniae (PCR) Not Detected (NotDetected) Parainfluenza 1 (PCR) Not Detected (NotDetected) Parainfluenza 2 (PCR) Not Detected (NotDetected) Parainfluenza 3 (PCR) Not Detected (NotDetected) Parainfluenza 4 (PCR) Not Detected (NotDetected) RSV (PCR) Not Detected (NotDetected) Entero/Rhino (PCR) Not Detected (NotDetected) Diagnostic Findings ABDOMEN AND PELVIS CT WITH IV CONTRAST CT DOSE: 1392.43 mGy.cm HISTORY: Acute right lower quadrant abdominal pain periumb and R sided ab pain, neg walker's, RLQ ivone TECHNIQUE: Multiaxial CT images of the abdomen and pelvis were performed following the IV administration of 93 cc of Optiray, A dose lowering technique was utilized adhering to the principles of ALARA. COMPARISON STUDY: 02/02/2024 FINDINGS: Clear lung bases. The liver, spleen, adrenal glands, kidneys and pancreas are unremarkable. There is no biliary or pancreatic ductal dilatation. There is no hydronephrosis. There are postoperative findings consistent with cystectomy with apparent neobladder formation. There is no abdominal or pelvic lymphadenopathy. The caliber and wall thickness of small and large bowel are normal. Dilated and inflamed appendix with mucosal hyperemia measures up to 11 mm transversely with adjacent inflammatory stranding. Subcentimeter ileocolic lymph nodes. There are no fluid collections. Major vasculature is patent. A bone island within the left acetabulum is benign. There are no suspicious osseous lesions within the visualized skeletal structures. IMPRESSION: 1. Acute appendicitis. No abscess or pneumoperitoneum. 2. No bowel obstruction. Code Status & VTE Plan VTE Prophylaxis Plan VTE Prophylaxis will be ordered: Yes
[2024-03-03] MEDS ORDERED: oxyCODONE/ACETAMINOPHEN 5mg/325mg TAB PO PRN (17:34)
[2024-03-03] MEDS ORDERED: PROMETHAZINE HCL 12.5 MG in SODIUM CHLORIDE 0.9% 50 ML IV PRN (17:34)
[2024-03-03] MEDS ORDERED: ONDANSETRON INJ 2 MG/ML 2 ML VIAL IV PRN (17:34)
[2024-03-03] MEDS ORDERED: MoRPHine SULFATE 4 MG/ML 1 ML CARP\\VIAL IV PRN (17:34)
[2024-03-03] MEDS ORDERED: MoRPHine SULFATE 2 MG/ML CARP IV PRN (17:34)
[2024-03-03] MEDS ORDERED: ACETAMINOPHEN 325 MG TAB PO PRN (17:34)
[2024-03-03] MEDS: PIPER/TAZO 4.5g in D5W MINI-B 100 ML IV ONE (18:33)
[2024-03-03] MEDS: LACTATED RINGER'S 1,000 ML IV SCH (18:35)
[2024-03-03] MEDS: lamoTRIgine 100 MG TAB PO SCH (20:12)
[2024-03-03] MEDS: ZOLPIDEM TARTRATE 10 MG TAB PO SCH (20:12)
[2024-03-03] MEDS: DOCUSATE SODIUM 100 MG CAP PO SCH (20:12)
[2024-03-03] MEDS: clonazePAM 0.5 MG TAB PO SCH (20:14)
[2024-03-03] MEDS: PIPERACILLIN/TAZOBACTAM 4.5 GM in DEXTROSE 5% MINI-B 100 ML IV SCH (23:05)
[2024-03-04] MEDS: oxyCODONE/ACETAMINOPHEN 5mg/325mg TAB PO PRN (06:35)
[2024-03-04 07:14] LABS: Basophils # (auto) 0.01 K/uL (0.00-0.20); Basophils % (auto) 0.2 %; Hematocrit (blood only) 36.9 % (37.0-47.0); Immature Granulocytes # (auto) 0.01 K/uL (0.01-0.20); Immature Granulocytes % (auto) 0.2 %; Lymphocytes % (auto) 29.1 %; Mean Corpuscular Hemoglobin 27.6 pg (25.0-34.0); Mean Corpuscular Hgb Conc 32.5 g/dL (32.0-36.0); Mean Platelet Volume 9.3 fL (9.4-12.4); Monocytes # (auto) 0.36 K/uL (0.11-0.59); Neutrophils # (auto) 3.28 K/uL (1.40-6.50); Neutrophils % (auto) 63.5 %; Platelet Count 143 K/uL (130-400); RDW Coefficient of Variation 13.7 % (11.5-14.5); RDW Standard Deviation 42.8 fL (36.4-46.3); Red Blood Count 4.34 M/uL (4.20-5.40); White Blood Count 5.16 K/ul (4.8-10.8)
[2024-03-04 07:44] LABS: BUN Creatinine Ratio 15.8 (10-20); Calcium 8.9 mg/dl (8.6-10.3); Creatinine Clr Calc Pharmacy 93.8 ml/min; Est GFR (African American) 103.8 ml/min; Est GFR (Non-African American) 89.6 ml/min; Potassium 4.1 mmol/L (3.5-5.1)
[2024-03-04] MEDS: ESCITALOPRAM OXALATE 20 MG TAB PO SCH (09:01)
--- NOTE | 2024-03-04 10:02 | Surgery Progress Note ---
Date of Service March 04, 2024 Assessment & Plan (1) Acute appendicitis: Plan: 54 year-old female with history of bladder cancer s/p pelvic exenteration surgery with creation of neobladder of small bowel and duplication of right and left ureters presents to emergency department with 3 day history of abdominal pain with associated nausea and decreased appetite. CT scan with acute appendicitis without perforation or abscess. She is afebrile and has no leukoc ytosis. Given patients extensive pelvic exenteration surgery and findings of early acute uncomplicated appendicitis, Dr. Ferro discussed recommendations of nonoperative approach first with IV antibiotics and possibly interval appendectomy in 6-8 weeks. Will plan to admit to med/surg, IV Zosyn, pain management and antiemetics as needed. she is doing well this morning. No leukocytosis, no fevers or chills. Continue IV antibiotics. Continue to monitor. Continue clear liquid diet. Admission and Anticipated Discharge Date Admission Date: March 03, 2024 Subjective doing well. Some mild lower abdominal pain. No nausea or vomiting. No fevers or chills overnight. Physical Exam Physical Exam: AFVSS NAD, A&O x 3 Abdomen: Soft, mild TTP in RLQ Results & Data Vital Signs (Past 12 Hours) Vital Signs Temp Pulse Resp BP Pulse Ox O2 Del Method 03/04/24 08:17 36.6 C 58 L 18 111/72 96 Room Air Laboratory Results 03/04/24 03/03/24 03/03/24 Range/Units 06:25 Unknown 11:17 WBC 5.16 7.67 (4.8-10.8) K/ul RBC 4.34 4.67 (4.20-5.40) M/uL Hgb 12.0 13.1 (12.0-16.0) g/dl Hct 36.9 L 40.1 (37.0-47.0) % MCV 85.0 85.9 (80.0-100.0) fL MCH 27.6 28.1 (25.0-34.0) pg MCHC 32.5 32.7 (32.0-36.0) g/dL RDW Std Deviation 42.8 43.8 (36.4-46.3) fL RDW Coeff of Jane 13.7 13.9 (11.5-14.5) % Plt Count 143 161 (130-400) K/uL MPV 9.3 L 9.3 L (9.4-12.4) fL Immature Gran % (Auto) 0.2 0.3 % Neut % (Auto) 63.5 61.9 % Lymph % (Auto) 29.1 31.6 % [place] % (Auto) 7.0 6.1 % Eos % (Auto) 0.0 0.0 % Baso % (Auto) 0.2 0.1 % Neut # (Auto) 3.28 4.75 (1.40-6.50) K/uL Lymph # (Auto) 1.50 2.42 (1.20-3.40) K/uL [place] # (Auto) 0.36 0.47 (0.11-0.59) K/uL Eos # (Auto) 0.00 0.00 (0.00-0.50) K/uL Baso # (Auto) 0.01 0.01 (0.00-0.20) K/uL Immature Gran # (Auto) 0.01 0.02 (0.01-0.20) K/uL Sodium 141 139 (136-145) mmol/L Potassium 4.1 4.2 (3.5-5.1) mmol/L Chloride 106 102 (98-107) mmol/L Carbon Dioxide 31 32 (21-32) mmol/L Anion Gap 4 5 (3-11) BUN 12 18 (6-23) mg/dl Creatinine 0.76 0.84 (0.6-1.2) mg/dl Est Cr Clr Drug Dosing 93.8 84.9 ml/min Est GFR ( Amer) 103.8 92.0 ml/min Est GFR (Non-Af Amer) 89.6 79.3 ml/min BUN/Creatinine Ratio 15.8 21.4 H (10-20) Glucose 104 H 108 H (70-99(Fasting)) mg/dl Calcium 8.9 9.3 (8.6-10.3) mg/dl Total Bilirubin 0.5 (0.2-1.0) mg/dl AST 13 (13-39) U/L ALT 12 (7-52) U/L Alkaline Phosphatase 78 (34-104) U/L Total Protein 6.8 (6.0-8.3) gm/dl Albumin 4.3 (3.4-5.0) gm/dl Globulin 2.5 (2.5-4.0) gm/dl Albumin/Globulin Ratio 1.7 (0.9-2) Lipase 27 (11-82) U/L Urine Color Yellow Urine Appearance Clear (Clear) Urine pH 6.5 (4.5-7.5) Ur Specific [place] 1.011 (1.000-1.030) Urine Protein Negative (Negative) Urine Glucose (UA) Negative (Negative) Urine Ketones Negative (Negative) Urine Blood Negative (Negative) Urine Nitrite Negative (Negative) Urine Bilirubin Negative (Negative) Urine Urobilinogen Negative (Negative) Ur Leukocyte Esterase 1+ H (Negative) Urine WBC (Auto) >50 H (0-5) /hpf Urine RBC (Auto) 0-2 (0-2) /hpf U Hyaline Cast (Auto) 0-2 (0-2) /lpf U Epithel Cells (Auto) 0-2 (0-2) /hpf Urine Bacteria (Auto) 1+ H (None Seen) Adenovirus (PCR) Not Detected (NotDetected) B. pertussis DNA (PCR) Not Detected (NotDetected) B.parapertussis DNA PCR Not Detected (NotDetected) C. pneumoniae DNA (PCR) Not Detected (NotDetected) Coronavirus OC43 (PCR) Not Detected (NotDetected) Coronavirus HKU1 (PCR) Not Detected (NotDetected) Coronavirus 229E (PCR) Not Detected (NotDetected) SARS-CoV-2 (PCR) Not Detected (NotDetected) Coronavirus NL63 (PCR) Not Detected (NotDetected) Human Metapneumovir PCR Not Detected (NotDetected) Influenza Type A (PCR) Not Detected (NotDetected) Influenza Type B (PCR) Not Detected (NotDetected) M. pneumoniae (PCR) Not Detected (NotDetected) Parainfluenza 1 (PCR) Not Detected (NotDetected) Parainfluenza 2 (PCR) Not Detected (NotDetected) Parainfluenza 3 (PCR) Not Detected (NotDetected) Parainfluenza 4 (PCR) Not Detected (NotDetected) RSV (PCR) Not Detected (NotDetected) Entero/Rhino (PCR) Not Detected (NotDetected)
[2024-03-04] MEDS ORDERED: Nursing to Pharmacy Communication SCH (13:00)
[2024-03-05 08:57] LABS: Basophils # (auto) 0.01 K/uL (0.00-0.20); Basophils % (auto) 0.2 %; Hematocrit (blood only) 35.4 % (37.0-47.0); Hemoglobin 11.6 g/dl (12.0-16.0); Immature Granulocytes # (auto) 0.01 K/uL (0.01-0.20); Immature Granulocytes % (auto) 0.2 %; Lymphocytes # (auto) 1.38 K/uL (1.20-3.40); Lymphocytes % (auto) 33.2 %; Mean Corpuscular Hgb Conc 32.8 g/dL (32.0-36.0); Mean Corpuscular Volume 85.3 fL (80.0-100.0); Mean Platelet Volume 9.4 fL (9.4-12.4); Monocytes # (auto) 0.25 K/uL (0.11-0.59); Neutrophils # (auto) 2.51 K/uL (1.40-6.50); Neutrophils % (auto) 60.4 %; Platelet Count 150 K/uL (130-400); RDW Coefficient of Variation 13.6 % (11.5-14.5); RDW Standard Deviation 42.5 fL (36.4-46.3); Red Blood Count 4.15 M/uL (4.20-5.40); White Blood Count 4.16 K/ul (4.8-10.8)
--- NOTE | 2024-03-05 09:05 | Surgery Progress Note ---
Date of Service March 05, 2024 Assessment & Plan (1) Acute appendicitis: Plan: 54 year-old female with history of bladder cancer s/p pelvic exenteration surgery with creation of neobladder of small bowel and duplication of right and left ureters presents to emergency department with 3 day history of abdominal pain with associated nausea and decreased appetite. CT scan with acute appendicitis without perforation or abscess. She is afebrile and has no leukoc ytosis. Given patients extensive pelvic exenteration surgery and findings of early acute uncomplicated appendicitis, Dr. Ferro discussed recommendations of nonoperative approach first with IV antibiotics and possibly interval appendectomy in 6-8 weeks. Will plan to admit to med/surg, IV Zosyn, pain management and antiemetics as needed. she is doing well this morning. No leukocytosis, no fevers or chills. Continue IV antibiotics. Continue to monitor. Advance to low fiber diet. Admission and Anticipated Discharge Date Admission Date: March 03, 2024 Subjective doing well. continues with some mild lower abdominal pain. No nausea or vomiting. No fevers or chills overnight. Physical Exam Physical Exam: AFVSS NAD, A&O x 3 Abdomen: Soft, mild TTP in RLQ Results & Data Vital Signs (Past 12 Hours) Vital Signs Temp Pulse Resp BP Pulse Ox O2 Del Method 03/05/24 07:12 36.9 C 53 L 16 101/66 98 Room Air
[2024-03-05] MEDS: LACTATED RINGER'S 1,000 ML IV SCH (21:15)
--- NOTE | 2024-03-06 08:39 | Surgery Progress Note ---
Date of Service March 06, 2024 Assessment & Plan (1) Acute appendicitis: Plan: 54 year-old female with history of bladder cancer s/p pelvic exenteration surgery with creation of neobladder of small bowel and duplication of right and left ureters presents to emergency department with 3 day history of abdominal pain with associated nausea and decreased appetite. CT scan with acute appendicitis without perforation or abscess. She is afebrile and has no leukoc ytosis. Given patients extensive pelvic exenteration surgery and findings of early acute uncomplicated appendicitis, Dr. Ferro discussed recommendations of nonoperative approach first with IV antibiotics and possibly interval appendectomy in 6-8 weeks. Will plan to admit to med/surg, IV Zosyn, pain management and antiemetics as needed. she is doing well this morning. No leukocytosis, no fevers or chills. Continue IV antibiotics. She continues to have pain. We will repeat her CT scan with oral and IV contrast. Further recommendations to follow the CT scan. Admission and Anticipated Discharge Date Admission Date: March 03, 2024 Subjective states she still has pain, may be slightly worse. Some nausea. Physical Exam Physical Exam: AFVSS NAD, A&O x 3 Abdomen: Soft, mild TTP in RLQ Results & Data Vital Signs (Past 12 Hours) Vital Signs Temp Pulse Resp BP Pulse Ox O2 Del Method 03/06/24 07:22 36.5 C 50 L 12 109/70 98 Room Air 03/05/24 21:09 36.9 C 55 L 18 114/68 98 Room Air
[2024-03-06] MEDS: OPTIRAY 320 100ml IV ONE (11:07)
--- NOTE | 2024-03-06 11:22 | CT Scan Report ---
CT SCAN OF THE ABDOMEN AND PELVIS WITH IV CONTRAST CLINICAL HISTORY: Generalized abdominal pain. Known appendicitis. COMPARISON STUDY: Abdominal CT dated 03/03/2024. TECHNIQUE: Following the IV administration of 92 cc of Optiray 320, CT scan of the abdomen and pelvi s is performed from the lung bases to the proximal femora. Images are reviewed in the axial, sagittal , and coronal planes. IV contrast was administered without complication. Oral contrast was utilized. A dose lowering technique was utilized adhering to the principles of ALARA. FINDINGS: Lung bases: The tip of a central venous catheter projects over the cavoatrial junction. The heart is normal in size and without pericardial effusion. There are trace pleural effusions, right larger than left. Atelectasis is noted at both lung bases. Liver: The contrast-enhanced liver is normal in size, contour, and attenuation. There is no intrahepa tic biliary ductal dilatation. The hepatic veins and portal veins are patent. Gallbladder: Mildly distended but otherwise normal in appearance. Spleen: Normal in size and attenuation. Pancreas: Unremarkable. Adrenal glands: Unremarkable. Kidneys: The contrast enhanced kidneys are normal in size and without hydronephrosis. There is duplic ation of the renal collecting bilaterally and at least partial duplication of the ureters. The kidney s enhance symmetrically. Abdominal vasculature: The abdominal aorta is normal in course and caliber noting mild atheroscleroti c calcification. Bowel: There is no bowel obstruction. Enteric contrast reaches the right colon. There is mild to mode rate colonic fecal retention. The appendix is dilated measuring up to 9 mm in diameter as seen on jillian ge #25. The appendiceal wall is thickened and there is mild surrounding infiltration. Inflammatory ch jose martin has decreased from 03/03/2024. No fluid collection is seen to suggest abscess. Peritoneum: There is no intraperitoneal free air or abdominal ascites. There is a fat-containing umbi lical hernia. Lymphadenopathy: None. Pelvic viscera: The bladder is decompressed and not well evaluated. The uterus is surgically absent. No adnexal lesion is seen. Surgical clips are seen throughout the pelvis. Skeletal structures: The skeletal structures are osteopenic. Mild lumbosacral spondylosis is observed . There is degenerative sclerosis of the sacroiliac joints. No lytic or blastic lesions are seen. IMPRESSION: 1. Again seen is evidence of acute to subacute appendicitis. The degree of inflammation has modestly improved as compared to 03/03/2024. 2. There is no evidence of abscess or perforation. 3. Trace pleural effusions. 4. Additional findings as above. ACT 112: Negative or not required by law. Electronically signed by: Arsalan Montelongo M.D. 03/06/2024 11:21 AM
[2024-03-07 06:39] LABS: Basophils # (auto) 0.01 K/uL (0.00-0.20); Basophils % (auto) 0.2 %; Hematocrit (blood only) 36.1 % (37.0-47.0); Hemoglobin 11.9 g/dl (12.0-16.0); Immature Granulocytes # (auto) 0.01 K/uL (0.01-0.20); Immature Granulocytes % (auto) 0.2 %; Lymphocytes # (auto) 2.18 K/uL (1.20-3.40); Lymphocytes % (auto) 46.3 %; Mean Corpuscular Hemoglobin 27.9 pg (25.0-34.0); Mean Corpuscular Volume 84.5 fL (80.0-100.0); Mean Platelet Volume 9.5 fL (9.4-12.4); Monocytes # (auto) 0.28 K/uL (0.11-0.59); Monocytes % (auto) 5.9 %; Neutrophils # (auto) 2.23 K/uL (1.40-6.50); Neutrophils % (auto) 47.4 %; Platelet Count 142 K/uL (130-400); RDW Coefficient of Variation 13.8 % (11.5-14.5); Red Blood Count 4.27 M/uL (4.20-5.40); White Blood Count 4.71 K/ul (4.8-10.8)
[2024-03-07 07:35] LABS: Blood Urea Nitrogen 8 mg/dl (6-23); Calcium 8.5 mg/dl (8.6-10.3); Carbon Dioxide 29 mmol/L (21-32); Chloride 107 mmol/L (98-107); Creatinine Clr Calc Pharmacy 97.7 ml/min; Glucose 92 mg/dl (70-99(Fasting))
[2024-03-07] MEDS: HEPARIN 100 UNIT/ML 5ML FLUSH FLUSH PRN (08:58)
[2024-03-07 09:42] LABS: Potassium 3.9 mmol/L (3.5-5.1)
--- NOTE | 2024-03-07 11:48 | Surgery Progress Note ---
Date of Service March 07, 2024 Assessment & Plan (1) Acute appendicitis: Plan: 54 year-old female with history of bladder cancer s/p pelvic exenteration surgery with creation of neobladder of small bowel and duplication of right and left ureters presents to emergency department with 3 day history of abdominal pain with associated nausea and decreased appetite. CT scan with acute appendicitis without perforation or abscess. 03/07/2024 avss minimal pain no leukocytosis during entire hospitalization repeat ct on 03/06/2024 showing modest improvement of the periappendiceal stranding Plan: Continue conservative measures with the IV Zosyn likely discharge this afternoon after zosyn completed and transition to oral antibiotics low fiber diet Admission and Anticipated Discharge Date Admission Date: March 03, 2024 Subjective having some pain this morning, mid low abdomen about 4/10 and now 2/10 . has not taken any pain medication. Multiple bms yesterday no n,v, tolerating low fiber diet no chest pain sob no fevers or chills Physical Exam Constitutional: WD/WN, vitals as above cooperative and comfortable; no acute distress and not ill appearing Respiratory: normal respiratory effort; no respiratory distress and no labored breathing Gastrointestinal (Abdomen): Inspection/Auscultation: abdomen normal to inspection and + abdominal surgical scar (low midline laparotomy scar); abdomen not distended Percussion/Palpation: + abdomen tender (low mid abdomen) and abdomen soft; no guarding, abdomen not rigid and abdomen not firm Skin: no rashes, warm and dry Psychiatric: A+Ox3, euthymic affect Results & Data Vital Signs (Past 12 Hours) Vital Signs Temp Pulse Resp BP Pulse Ox O2 Del Method 03/07/24 07:08 36.7 C 53 L 16 114/74 96 Room Air Laboratory Results 03/07/24 03/07/24 Range/Units 08:57 06:08 WBC 4.71 L (4.8-10.8) K/ul RBC 4.27 (4.20-5.40) M/uL Hgb 11.9 L (12.0-16.0) g/dl Hct 36.1 L (37.0-47.0) % MCV 84.5 (80.0-100.0) fL MCH 27.9 (25.0-34.0) pg MCHC 33.0 (32.0-36.0) g/dL RDW Std Deviation 42.0 (36.4-46.3) fL RDW Coeff of Jane 13.8 (11.5-14.5) % Plt Count 142 (130-400) K/uL MPV 9.5 (9.4-12.4) fL Immature Gran % (Auto) 0.2 % Neut % (Auto) 47.4 % Lymph % (Auto) 46.3 % [place] % (Auto) 5.9 % Eos % (Auto) 0.0 % Baso % (Auto) 0.2 % Neut # (Auto) 2.23 (1.40-6.50) K/uL Lymph # (Auto) 2.18 (1.20-3.40) K/uL [place] # (Auto) 0.28 (0.11-0.59) K/uL Eos # (Auto) 0.00 (0.00-0.50) K/uL Baso # (Auto) 0.01 (0.00-0.20) K/uL Immature Gran # (Auto) 0.01 (0.01-0.20) K/uL Sodium 142 TNP Potassium 3.9 TNP Chloride 107 (98-107) mmol/L Carbon Dioxide 29 (21-32) mmol/L Anion Gap TNP BUN 8 (6-23) mg/dl Creatinine 0.73 (0.6-1.2) mg/dl Est Cr Clr Drug Dosing 97.7 ml/min Est GFR ( Amer) 109.0 ml/min Est GFR (Non-Af Amer) 94.0 ml/min BUN/Creatinine Ratio 11.0 (10-20) Glucose 92 (70-99(Fasting)) mg/dl Calcium 8.5 L (8.6-10.3) mg/dl
--- NOTE | 2024-03-09 11:17 | Discharge Summary ---
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 Pain has been chronic since. No fevers or chills. No diarrhea, no blood in stools. She has not taken anything for the pain recently as it was not helping at home. In review of her operative report from [facility] she had pelvic exenteration surgery with neobladder creation with a loop of small intestine. She currently is rating her pain about 7/10. Zofran helped with nausea. Has not had any pain medication. Principal Diagnosis Acute appendicitis Discharge Data Allergies Allergy/AdvReac Type Severity Reaction Status Date / Time codeine Allergy Unknown Hallucinati Verified 11/17/23 17:04 ng Consultations 03/03/24 13:28 ED Decision to Admit Stat 03/06/24 14:57 Burn CD for patient Routine Ordered Studies 03/03/24 11:06 CT abd pelvis IV con only Stat 03/06/24 08:37 CT Abd and Pelvis [CT abd pelvis oral and IV con] Urgent Hospital Course (1) Acute appendicitis: Patient presented to ED with 3 day history of abdominal pain with associated nausea and chills. She was found to have early uncomplicated appendicitis on CT scan without leukocytosis. Given her history of pelvic exenteration surgery for bladder cancer it was elected to proceed with conservative treatment with IV Antibiotics. Patient was admitted and started on IV Zosyn and pain management as needed . Diet was advanced as tolerated. Patients pain slowly improved and on HD # [address] scan was obtained with oral and iv contrast which showed improvement of periappendiceal inflammation. Diet was advanced to low fiber diet. Patient was discharged home with oral antibiotics for 10 days on HD # 4. Total Time Total Time Spent Total Time Spent (In Minutes): 60 minutes Discharge Plan Discharge Items Patient Disposition: Home - Self-Care Reason For Visit: ACUTE APPENDICITIS Discharge Diagnosis: Acute appendicitis Activity: Per Instructions section Non-emergency contact: Primary Care Provider and Surgeon Call non-emergency contact if: you have any medication questions, your pain is not controlled, your pain is worsening, you have a fever and your temperature is above 101 Follow-up/Referrals: Vasiliy Ferro MD [Physician] - (2 weeks) Dewayne Bryant MD [Primary Care Provider] - 03/10/24 3:00 pm (Appointment will be with Rachel Garcia) Diet: Low Fiber Addtl Attending Provider Instructions: Activity Recommendations: - exercise/sex/sports limit: (nonstrenuous for 2 weeks) Diet: - Low fiber diet for 1 week and then resume regular diet SPECIAL CARE INSTRUCTIONS: - Call the surgeon's office with any questions or concerns - - (ex. temperature higher than 101 degrees F, excessive bleeding or pain). MEDICATIONS: - Resume previous medications unless instructed otherwise by your surgeon. - Ibuprofen 600 mg every 6 hours with food - Tylenol 650 mg every 6 hours as needed - Percocet 1 every 6 hours, as needed for severe pain - Take entire course of antibiotics as prescribed (10 days) FOLLOW UP VISIT: - If not already scheduled, please call the office to schedule a two week follow-up appointment. Office number Pending Studies at Discharge: No Stand-Alone Forms: My [facility] [employer], Smoking Cessation Medications and DC Order Prescriptions: New amoxicillin-pot clavulanate 875-125 mg tablet 1 tab PO BID Qty: 20 0RF oxycodone-acetaminophen 5-325 mg tablet 1 tab PO Q6H PRN (Reason: pain) Qty: 10 0RF Continued escitalopram oxalate 20 mg tablet 20 mg PO QAM Patient Comments: outside provider prescritps clonazepam 0.5 mg tablet 0.5 mg PO HS Qty: 180 Patient Comments: outside provider prescripts Rx Instructions: usually takes at night unless she needs one during the day methylphenidate HCl 54 mg tablet extended release 24hr 54 mg PO QAM Patient Comments: outside provider prescripted zolpidem 12.5 mg tablet,ext release multiphase 12.5 mg PO HS Patient Comments: outside provider prescripts lamotrigine 200 mg tablet 200 mg PO BID Patient Comments: outside provider prescripts Discharge Orders: Discharge Order (Routine); Ordered 03/07/24 Ordered By: Jennifer Johnson/Other Patient Handouts: What Is Appendicitis? Admission Data Admit Date/Time: 03/03/24 15:29 Attending Provider: Vasiliy Ferro Admit Provider: Vasiliy Ferro Primary Care Provider: Dewayne Bryant Other Providers: Vasiliy Ferro Other Interventions: Discharge Summary Assessment (RN) Last Done: 03/07/24 14:07
== END 2024-03-07 14:55 | disposition home or self-care (01) | DRG 395 ==
LOC: ED 10:20 → EDINP 15:29 → 3W 17:57